=== PATIENT | female | born 1960 | race Caucasian/White ===

== ENCOUNTER 2019-04-12 10:38 | Observation (INO) | payer OTHER, BC, SELFPAY ==
[2019-04-12] VITALS (12 sets, daily range): BP systolic 123–159; BP diastolic 62–88; PULSE 66–105; RESP 16–18; TEMP 36.3–36.5; O2SAT 90–98; BMI 44.1
--- NOTE | ~2019-04-12 | XR_ITS ---
XR chest 2V DATE: 04/12/2019 11:17 INDICATION: Midsternal to left shoulder blade pain, burning TECHNIQUE: PA and lateral views COMPARISON: None FINDINGS: Normal heart size. No hilar or mediastinal enlargement. Mild aortic tortuosity. No pulmonary infiltrate or consolidation, pleural effusion or pulmonary vascular congestion or pneumo thorax is detected. IMPRESSION: No active cardiopulmonary disease Reviewed, dictated and finalized at location A. S MGR
--- NOTE | ~2019-04-12 | CT_ITS ---
EXAMINATION: CTA chest PE protocol DATE: 04/12/2019 11:56 INDICATION: Chest pain, burning sensation, midsternal to left shoulder blade area TECHNIQUE: Computed tomography angiography (CTA) of the chest was performed with 100 mL Omnipaque-350 intravenous contrast timed to evaluate the pulmonary arteries. Coronal maximum intensity projection 3D-reconstructions were created by the technologist. Automated exposure control and iterative reconst ruction technique were employed. Exam dose: 957.49 mGy-cm total exam DLP. COMPARISON: 04/12/2021 view chest FINDINGS: There is diagnostic contrast enhancement of the pulmonary arteries. There are are small segmental pulmonary artery filling defects in the posterior segment of the left l ower lobe and lingula. Heart size is within normal range. No thoracic aortic aneurysm or dissection. No hilar or mediastinal mass lesion or lymphadenopathy. No pulmonary infiltrate or consolidation or pulmonary mass lesion is detected. Small sliding hiatal hernia. Diffuse idiopathic skeletal hyperostosis of the thoracic spine. No suspicious osteolytic or osteoblas tic lesions. IMPRESSION: Mild pulmonary embolism at the lingula and left lower lobe Reviewed, dictated and finalized at Location A. Reviewed, dictated and finalized at location A. 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
--- NOTE | ~2019-04-12 | US_ITS ---
US venous doppler [facility] DATE: 04/12/2019 14:06 INDICATION: Pulmonary embolism TECHNIQUE: Real-time and color flow imaging and Doppler analysis of the veins of the lower extremitie s COMPARISON: 04/12/2019 CT pulmonary scan FINDINGS: The greater saphenous veins are patent. There is spontaneous and phasic flow and normal aug mentation and color flow signal and normal compression of the deep veins of the lower extremities. No deep venous thrombosis is detected. There is a left popliteal cyst measuring 4.0 x 2.2 x 3.5 cm. IMPRESSION: No evidence of deep venous thrombosis of the lower extremities Left popliteal cyst Reviewed, dictated and finalized at [facility]. Reviewed, dictated and finalized at location A. NSED OPTICIAN
--- NOTE | 2019-04-12 10:45 | ECG_ITS ---
Measurements Intervals Reedy Rate: 102 P: 47 NJ: 146 QRS: 34 QRSD: 93 T: 33 QT: 349 QTc: 455 Interpretive Statements SINUS TACHYCARDIA POSSIBLE LEFT ATRIAL ENLARGEMENT INFERIOR INFARCT, AGE INDETERMINATE BASELINE ARTIFACT- I, II, III, AVR, V3, V6 ABNORMAL ECG Electronically Signed On 04-17-2019 12:58:09 FLUSH TESTER by Sp Parikh D.O.
[2019-04-12] MEDS: ASPIRIN 81 MG CHEWABLE TABLET 324 MG PO (11:19)
[2019-04-12] MEDS: ONDANSETRON INJ 4 MG/2 ML VIAL IV PUSH (11:19)
[2019-04-12] MEDS: SODIUM CHLORIDE 0.9% IV 1,000 ML 999 ML IV CONT (11:20)
--- NOTE | 2019-04-12 11:20 | ED.CHESTPAIN ---
HPI - Chest Pain General Chief Complaint: Chest Pain Stated Complaint: Chest pain Time Seen by Provider: 04/12/19 10:45 Source: patient Mode of arrival: ambulatory Limitations: no limitations History of Present Illness HPI narrative: Patient is a 58-year-old female who presents with midsternal chest pain radiating to the left scapula that has been present now for the last 24 hours noting that yesterday she developed the pain which was persistent throughout the day took some Pepto-Bismol with no improvement patient notes that the pain seemed to slightly improve throughout the evening and then woke again with the discomfort today which has remained persistent and also notes she has been having increasing belching. Patient denies similar occurrence in the past presents per private vehicle in no distress denies any nausea vomiting diarrhea or dyspnea. Pain apparently is worse with standing Related Data Home Medications Medication Instructions Recorded Confirmed celecoxib mg 04/12/19 levothyroxine [Synthroid] 04/12/19 lisinopril 04/12/19 Allergies Allergy/AdvReac Type Severity Reaction Status Date / Time Penicillins Allergy Unknown Rash Verified 04/12/19 10:48 clindamycin AdvReac Abdominal Verified 04/12/19 10:48 Pain Review of Systems Review of Systems: Narrative: CONSTITUTIONAL: Denies fever, chills, or sweats. EYES: Denies redness, or discharge. ENT: Denies rhinorrhea, congestion, sore throat, or otalgia. CARDIOVASCULAR: Denies edema. RESPIRATORY: Denies cough or dyspnea. GASTROINTESTINAL: Denies abdominal pain, nausea, vomiting, or diarrhea. GENITOURINARY: Denies dysuria or hematuria. SKIN: Denies rash or itching. MUSCULOSKELETAL: Denies joint pain, or myalgia. NEUROLOGIC: Denies headache, numbness, dizziness, or weakness. [facility] Past Medical History Medical History (Updated 04/12/19 @ 13:46 by Eduar Leyva PA-C) Hypertension Hypothyroidism Surgical History Surgical History H/O thyroidectomy Social History Social History (Updated 04/12/19 @ 11:26 by Eduar Leyva PA-C) Smoking status: Never smoker Exam Narrative: Exam Narrative: GENERAL: Well-appearing, obese, and in no acute distress. HEAD: Normocephalic, atraumatic. EYES: PERRLA and EOMI. ENT: Nares clear, no rhinorrhea or epistaxis. Mucous membranes moist. Oropharynx without tonsillar hypertrophy exudate or other lesions. CHEST: Clear to auscultation. No respiratory distress. No wheezes rales or rhonchi HEART: Regular rate and rhythm. No murmur heard. Normal peripheral pulses. ABDOMEN: Soft, nontender, nondistended EXTREMITIES: Normal range of motion. No edema. SKIN: Warm, dry, no rash. NEURO: No focal deficits. Alert and oriented x3. Cranial nerves II through XII grossly intact PSYCH: Normal mood and affect. Course Course Emergency Course: Patient in the room in no distress aware of case findings treatment plan and diagnosis Consultations Consultation #1: Spoke with Krystal the hospitalist would like the patient admitted to the [facility] telemetry floor at this time with Lovenox for anticoagulation Vital Signs Vital signs: Vital Signs Temperature 97.5 F L 04/12/19 10:42 Pulse Rate 105 H 04/12/19 10:42 Respiratory Rate 16 04/12/19 10:42 Blood Pressure 159/88 H 04/12/19 10:42 Pulse Oximetry 95 04/12/19 10:42 Temperature 97.5 F L 04/12/19 10:42 Pulse Rate 96 04/12/19 10:50 Respiratory Rate 16 04/12/19 10:42 Blood Pressure 159/88 H 04/12/19 10:42 Pulse Oximetry 95 04/12/19 10:42 MDM - Chest Pain MDM Narrative Medical decision making narrative: Patient in the room in no distress aware of case findings treatment plan and diagnosis agreeing to stay in hospital was given anticoagulation in the emergency department will be admitted to the hospitalist service Imaging Data Radiologist's impression: ITS Impressions Chest X-Ray
[2019-04-12 11:24] LABS: Basophils Absolute Auto 0.1 K/mm3 (0.0-0.1); Basophils Percent Auto 0.7 % (0.2-1.2); Eosinophils Absolute Auto 0.3 K/mm3 (0-0.3); Eosinophils Percent Auto 4.6 % (0-4.4); Hematocrit 48.4 % (37.0-47.0); Hemoglobin 15.8 g/dL (12.0-15.0); Immature Granulocyte Absolute 0.02 K/mm3 (0.00-0.031); Immature Granulocyte Percent A 0.3 % (0-0.5); Lymphocytes Absolute Auto 2.17 K/mm3 (0.9-3.2); Lymphocytes Percent Auto 31.1 % (18.3-44.2); Mean Corpuscular HGB Conc 32.6 g/dl (32-36); Mean Corpuscular Hemoglobin 27.6 pg (26-34); Mean Corpuscular Volume 84.5 fl (80-100); Monocytes Absolute Auto 0.4 K/mm3 (0.1-0.6); Monocytes Percent Auto 6.2 % (2.6-8.5); Neutrophils Percent Auto 57.1 % (45.5-73.1); Platelet Count Result 323 k/mm3 (150-375); Red Blood Count 5.73 M/mm3 (4.2-5.4); Red Cell Distribution Width 12.7 % (11.5-14.5)
[2019-04-12 11:34] LABS: INR 0.9; Prothrombin Time 12.2 Seconds (11.1-14.7)
[2019-04-12 11:35] LABS: Partial Thromboplastin Time 30.3 SECONDS (22.3-36.8)
[2019-04-12 11:37] LABS: D Dimer 0.72 ug/mL (<0.48)
[2019-04-12 11:38] LABS: Alanine Aminotransferase 31 U/L (4-35); Albumin Level 4.3 g/dL (3.5-5.1); Alkaline Phosphatase 113 U/L (38-126); Aspartate Amino Transferase 34 U/L (14-36); Bilirubin,Total 0.4 mg/dL (0.2-1.3); Blood Urea Nitrogen 14 mg/dL (7-17); Calcium 9.1 mg/dL (8.4-10.2); Carbon Dioxide 27 mmol/L (22-30); Chloride 100 mmol/L (98-107); Estimated CRCL calculation 115 ml/min; Estimated Glomerular Filt Rate > 60; Glucose 150 mg/dL (65-105); Sodium 138 mmol/L (137-145)
[2019-04-12 11:53] LABS: NT Pro B Type Natriuretic Pept 103 PG/ML (5-100); Troponin I < 0.012 ng/mL (0.000-0.034)
--- NOTE | 2019-04-12 11:58 | PC.NURSE ---
pt return from ct. denies cp at this time
[2019-04-12] MEDS: MORPHINE SULFATE 2 MG/ML INJ IV PUSH (12:58)
[2019-04-12] MEDS: ENOXAPARIN 30 MG/0.3 ML SYRINGE SUB-Q (12:58)
[2019-04-12] MEDS: ENOXAPARIN 120 MG/0.8 ML SYRINGE SUB-Q (12:58)
--- NOTE | 2019-04-12 13:49 | PM.IMHP ---
H&P: HPI History of Present Illness Chief complaint: Pulmonary embolism Narrative: Val Smith is a pleasant 58 year old female with hypertension and hypothyroidism who presented to the emergency department earlier this morning for evaluation of chest pain. evening she slept poorly due to what she believed to be indigestion. Upon waking Sunday, she notes feeling a ?nagging an aching? midsternal discomfort radiating to the left scapula that has been pretty constant since that time. She took Pepto-Bismol tablets due to belching and suspected heartburn however that provided her with no benefit. She gives no aggravating factors but says that it is somewhat improved when walking around doing activities, she presumes because activities keep her mind off of the discomfort. She has some mild associated nausea but nothing significant. No fever, chills, sweats, pleuritic pain, palpitations, exertional chest pain, shortness of breath, vomiting, or lower extremity edema. Review of Systems Review of Systems: Narrative: Twelve systems were reviewed with pertinent positives and negatives as per HPI. No fever, chills, or sweats. Weight has remained stable, in fact she has had a slow weight gain over the years. Last mammogram was in December 06 and was unremarkable; she has never had an abnormal mammo. Colonoscopy in February 2012 showed diverticulosis and internal hemorrhoids. She has not noticed lymphadenopathy. No blood in the stool. No lower extremity edema, calf pain, or history of venous thromboembolism. She does have a left Johnson's cyst which is occasionally uncomfortable. Except as documented, all other systems were reviewed and are negative. [facility] Past Medical History Medical History (Updated 04/12/19 @ 22:26 by Katy Germain PA-C) Hypertension Hyperthyroidism Post-surgical hypothyroidism Surgical History Surgical History (Updated 04/12/19 @ 22:26 by Katy Germain PA-C) Status post appendectomy Status post thyroidectomy Status post tonsillectomy Family History Family History (Updated 04/12/19 @ 22:26 by Katy Germain PA-C) Mother History of blood clots Diabetes mellitus Hypertension Breast cancer Father Diabetes mellitus Social History Social History (Updated 04/12/19 @ 22:27 by Katy Germain PA-C) Social History: The patient lives in [place] with her . She designates her , Dwain, as her surrogate decision maker and she wishes to be a full code. 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 She smoked for a couple of years as a teenager. No alcohol or drug abuse. Smoking packs per day: 0.1 Smoking cigarettes per day: 2.0 Years smoked: 1 Smoking pack-years: 0.10 Smoking status: Former smoker Tobacco type: cigarettes Alcohol intake: never Substance use: never Substance use type: does not use Gender identity (if verbalized by the patient): Female Spiritual care concerns: No Agree to blood products: Yes Meds Home Medications and Allergies Home Medications Medication Instructions Recorded Confirmed Type celecoxib 200 mg PO DAILY 04/12/19 04/12/19 History levothyroxine [Synthroid] 175 mcg PO DAILY 04/12/19 04/12/19 History lisinopril 10 mg PO DAILY 04/12/19 04/12/19 History Allergies Allergy/AdvReac Type Severity Reaction Status Date / Time Penicillins Allergy Unknown Rash Verified 04/12/19 10:48 clindamycin AdvReac Abdominal Verified 04/12/19 10:48 Pain Vital Signs Vital Signs - 24 hr 04/12/19 10:42 04/12/19 10:50 04/12/19 12:46 Temperature 97.5 F L Pulse Rate 105 H 96 92 Respiratory Rate 16 18 Blood Pressure 159/88 H 153/88 H Pulse Oximetry 95 98 Exam Narrative: Exam Narrative: General: A well-developed, well-nourished female in the semi-Miller position in bed in no acute distress. HEENT: PERRL, EOMI. Sclerae anicteric. Oral mucosa moist. Neck: Supple. Respiratory
[2019-04-12 14:49] LABS: Troponin I < 0.012 ng/mL (0.000-0.034)
[2019-04-12 15:33] LABS: Alveolar/Arterial O2 Gradient 22.3 mmHg; Base Excess ABG -0.2 mEq/l (+/-2.0); Carboxyhemoglobin 0.5 % THb (0-2.0); Fractional Inspired Oxygen 21 %; HCO3 ABG 25.9 mEq/l (22.0-26.0); Methemoglobin ABG 0.4 %THb (0-1.5); Oxygen Content ABG 19.9 %vol (16.0-22.0); Oxygen Saturation ABG 93.4 % (95.0-100.0); Oxyhemoglobin 92.3 % THb (90.0-100.0); PCO2 ABG 47.5 mmHg (35.0-45.0); PO2 ABG 70.6 mmHg (80.0-100.0); PO2 FiO2 Ratio Arterial Blood 3.36 %; Reduced Hemoglobin 6.8 %THb (0-5.0); Total Hemoglobin 15.3 g/dL (12.0-18.0); pH ABG 7.354 (7.350-7.450)
[2019-04-12 15:34] LABS: Device ROOM AIR; Modified Allen's Test Pass; Site Drawn LEFT RADIAL
--- NOTE | 2019-04-12 15:48 | PC.NURSE ---
This patient, Val Smith, was admitted to [facility] Surg Room 316-02. Patient/family oriented to hospital policies and general routines including ID bracelet, bed and alarms, visiting hours, pain management, procedures, bathroom and other care routines, personal items, smoking policy, room service/diet, and visiting hours. Valuables list has been completed. Information on how to activate the Rapid Response Team has been discussed. Patient/Family are encouraged to report perceived risks to care and to ask questions if they do not understand what they are told or what they should do.
[2019-04-12 16:52] LABS: Troponin I < 0.012 ng/mL (0.000-0.034)
[2019-04-12 20:04] LABS: Troponin I < 0.012 ng/mL (0.000-0.034)
[2019-04-12] MEDS: FAMOTIDINE 20 MG/2 ML VIAL IV PUSH (21:44)
[2019-04-13] VITALS: PULSE 75
[2019-04-13 04:00] VITALS: PULSE 69
[2019-04-13] MEDS: LEVOTHYROXINE SODIUM 75 MCG TABLET PO (05:32)
[2019-04-13] MEDS: LEVOTHYROXINE SODIUM 100 MCG TABLET PO (05:32)
[2019-04-13 06:00] VITALS: BP 151/85; PULSE 66; RESP 18; TEMP 36.7; O2SAT 95
[2019-04-13 06:19] LABS: Basophils Percent Auto 0.5 % (0.2-1.2); Eosinophils Absolute Auto 0.3 K/mm3 (0-0.3); Hematocrit 43.6 % (37.0-47.0); Immature Granulocyte Absolute 0.01 K/mm3 (0.00-0.031); Immature Granulocyte Percent A 0.2 % (0-0.5); Lymphocytes Absolute Auto 2.01 K/mm3 (0.9-3.2); Lymphocytes Percent Auto 35.6 % (18.3-44.2); Mean Corpuscular HGB Conc 32.1 g/dl (32-36); Mean Corpuscular Hemoglobin 27.5 pg (26-34); Mean Corpuscular Volume 85.5 fl (80-100); Mean Platelet Volume 9.3 fl (7.4-10.4); Monocytes Absolute Auto 0.4 K/mm3 (0.1-0.6); Monocytes Percent Auto 7.8 % (2.6-8.5); Neutrophils Absolute Auto 2.8 K/mm3 (1.3-6.7); Neutrophils Percent Auto 49.9 % (45.5-73.1); Platelet Count Result 266 k/mm3 (150-375); White Blood Count 5.7 K/mm3 (4.5-10.0)
[2019-04-13 06:46] LABS: Blood Urea Nitrogen 12 mg/dL (7-17); Calcium 8.5 mg/dL (8.4-10.2); Carbon Dioxide 30 mmol/L (22-30); Chloride 97 mmol/L (98-107); Estimated CRCL calculation 107 ml/min; Estimated Glomerular Filt Rate > 60; Glucose 102 mg/dL (65-105); Potassium 3.7 mmol/L (3.4-5.0); Sodium 135 mmol/L (137-145)
[2019-04-13 08:00] VITALS: PULSE 73
[2019-04-13] MEDS: FAMOTIDINE 20 MG/2 ML VIAL IV PUSH (08:36)
[2019-04-13] MEDS: lisinopriL 10 MG TABLET PO (08:36)
[2019-04-13] MEDS: APIXABAN 5 MG TABLET 10 MG PO (10:02)
[2019-04-13 12:00] VITALS: PULSE 72
[2019-04-13 14:00] VITALS: BP 139/75; PULSE 70; RESP 20; TEMP 36.9; O2SAT 94
--- NOTE | 2019-04-13 14:02 | PM.DS ---
DS: Diagnosis Admitting Diagnosis Admitting Diagnosis: Other pulmonary embolism without acute cor pulmonale Discharge Diagnosis (1) Pulmonary embolism: Code(s): I26.99 - Other pulmonary embolism without acute cor pulmonale Status: Acute (2) Chest pain: Code(s): R07.9 - Chest pain, unspecified Status: Acute (3) Polycythemia: Code(s): D75.1 - Secondary polycythemia Status: Acute (4) Hypertension: Code(s): I10 - Essential (primary) hypertension Status: Acute (5) Hypothyroidism: Code(s): E03.9 - Hypothyroidism, unspecified Status: Acute DS: Summary Hospital Course Reason for hospitalization: 58yo femael here for CP and found to have a PE. Please see H&P for details. Hospital Course: To the emergency room complaints of chest pain. In the emergency room, she was hemodynamically stable. Hemoglobin was slightly elevated 15.8 but on repeat was normal. CBC otherwise was normal. PT and PTT were normal. D-dimer 0.7. ABG showed a pH is 7.35 with a pCO2 47 a PO2 of 71 on room air. Glucose elevated 150 but this was nonfasting. CMP otherwise normal. Troponins negative x4. BNP was 103. Chest x-ray was clear. CTA of the chest showed mild pulmonary embolism at the lingula and left lower lobe. No other acute findings. Lower extremity venous Doppler was negative for DVT. Left popliteal cyst was noted which patient is aware of. Echo is pending. Patient started on Lovenox. she was switched to Eliquis. Chest pain is mild currently. She feels well. She denies shortness of breath. Her insurance will pay for the Eliquis. Patient is discharged home on 04/13/2019. Status at Discharge Functional status at discharge: independent ambulation Overall status at discharge: patient is back to baseline Time Spent with Patient Time attestation: Total time spent providing and/or coordinating discharge services:32 minutes Time spent: Greater than 30 minutes Exam Narrative: Exam Narrative: General: NARD Respiratory: CTA bilat, nml RR CV: RRR GI: Abdomen soft, NT/ND, +BS Ext: No pedal edema. Psych normal mood and affect. DS: Data Data Completed and Pending Labs on day of discharge: Labs from last 24 hours 04/13/19 04/13/19 04/12/19 05:54 05:54 19:36 WBC 5.7 RBC 5.10 Hgb 14.0 Hct 43.6 MCV 85.5 MCH 27.5 MCHC 32.1 RDW 13.0 Plt Count 266 MPV 9.3 Immature Gran % (Auto) 0.2 Neut % (Auto) 49.9 Lymph % (Auto) 35.6 Andrews % (Auto) 7.8 Eos % (Auto) 6.0 H Baso % (Auto) 0.5 Lymph # (Auto) 2.01 Andrews # (Auto) 0.4 Eos # (Auto) 0.3 Baso # (Auto) 0.0 Abs Immat Gran (auto) 0.01 Absolute Neuts (auto) 2.8 Absolute Nucleated RBC 0.0 Nucleated RBC % 0.0 Puncture Site ABG pH ABG pCO2 ABG pO2 ABG PO2/FiO2 Ratio ABG HCO3 ABG O2 Saturation ABG O2 Content ABG Base Excess A-a Gradient Oxyhemoglobin Carboxyhemoglobin Methemoglobin Reduced Hemoglobin Total Hemoglobin O2 Delivery Device O2 Liters/Min FiO2 Sodium 135 L Potassium 3.7 Chloride 97 L Carbon Dioxide 30 BUN 12 Creatinine 0.80 Estim Creat Clear Calc 107 Estimated GFR > 60 Glucose 102 Calcium 8.5 Troponin I < 0.012 04/12/19 04/12/19 04/12/19 16:24 15:24 14:19 WBC RBC Hgb Hct MCV MCH MCHC RDW Plt Count MPV Immature Gran % (Auto) Neut % (Auto) Lymph % (Auto) Andrews % (Auto) Eos % (Auto) Baso % (Auto) Lymph # (Auto) Andrews # (Auto) Eos # (Auto) Baso # (Auto) Abs Immat Gran (auto) Absolute Neuts (auto) Absolute Nucleated RBC Nucleated RBC % Puncture Site Left radial ABG pH 7.354 ABG pCO2 47.5 H ABG pO2 70.6 L ABG PO2/FiO2 Ratio 3.36 ABG HCO3 25.9 ABG O2 Saturation 93.4 L ABG O2 Content 19.9 ABG Base Excess -0.2 A-a Gradient 22.3 Oxyhe
--- NOTE | 2019-04-23 07:31 | PC.NURSE ---
Apnea link results viewed by Dr. Prasad and faxed to Dr. Romero.
== END 2019-04-13 15:40 | disposition home or self-care (01) ==
LOC: ANHED 13:52 → ANH3MEDSUR 14:18
PROVIDERS: Emergency Medicine Emergency Medical Services; Physician Assistant; Admitting Provider Family Medicine; Emergency Provider Emergency Medicine; PCP Family Medicine Adolescent Medicine; Visit Provider Internal Medicine
DX: I26.99 Other pulmonary embolism without acute cor pulmonale; D75.1 Secondary polycythemia; I10 Essential (primary) hypertension; E89.0 Postprocedural hypothyroidism; Z79.899 Other long term (current) drug therapy
CPT/HCPCS: 36415; 36600; 71046; 71275; 80048; 80053; 82375; 82805; 83050; 83880; 84484; 85025; 85380; 85610; 85730; 93005; 93970; 94762; 96365; 96372; 96374; 96375; 99285; A9270; G0378; J0131; J1650; J2270; J2405; J7030; Q9967

== ENCOUNTER 2019-11-06 07:26 | Emergency (ER) | payer OTHER, BC, SELFPAY ==
[2019-11-06 07:25] VITALS: BP 191/86; PULSE 83; RESP 16; TEMP 37.1; O2SAT 98
--- NOTE | 2019-11-06 07:34 | ED.EPISTAXIS ---
HPI - Epistaxis General Chief complaint: Epistaxis Stated complaint: NOSE BLEED Time Seen by Provider: 11/06/19 07:34 Source: patient and family Mode of arrival: EMS History of Present Illness HPI Narrative: 59 years old white female presents with epistaxis, left nostril and started 2 hours prior to arrival to the emergency room. History of intermittent epistaxis for years, last one was 2 months ago. Patient started on Eliquis for pulmonary embolism March 2019. Related Data Home Medications Medication Instructions Recorded Confirmed levothyroxine [Synthroid] 175 mcg PO DAILY 04/12/19 04/12/19 lisinopril 10 mg PO DAILY 04/12/19 04/12/19 cetirizine [Zyrtec] 10 mg PO DAILY 11/06/19 Allergies Allergy/AdvReac Type Severity Reaction Status Date / Time Penicillins Allergy Unknown Rash Verified 11/06/19 07:30 clindamycin AdvReac Abdominal Verified 11/06/19 07:30 Pain Review of Systems Review of Systems: Narrative: CONSTITUTIONAL: Denies fever, chills, or sweats. EYES: Denies visual changes, redness, or discharge. ENT: Denies rhinorrhea, congestion, sore throat, or otalgia. CARDIOVASCULAR: Denies chest pain, palpitations, or edema. RESPIRATORY: Denies cough or dyspnea. GASTROINTESTINAL: Denies abdominal pain, nausea, vomiting, or diarrhea. GENITOURINARY: Denies dysuria or hematuria. SKIN: Denies rash or itching. MUSCULOSKELETAL: Denies back pain, joint pain, or myalgia. NEUROLOGIC: Denies headache, numbness, or weakness. PSYCHIATRIC: Denies anxiety or depression. [facility] Past Medical History Medical History Hypertension Hyperthyroidism Post-surgical hypothyroidism Surgical History Surgical History Status post appendectomy Status post thyroidectomy Status post tonsillectomy Family History Family History Mother History of blood clots Diabetes mellitus Hypertension Breast cancer Father Diabetes mellitus Social History Social History Social History: The patient lives in [place] with her . She designates her , Dwain, as her surrogate decision maker and she wishes to be a full code. 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 She smoked for a couple of years as a teenager. No alcohol or drug abuse. Smoking packs per day: 0.1 Smoking cigarettes per day: 2.0 Years smoked: 1 Smoking pack-years: 0.10 Smoking status: Former smoker Tobacco type: cigarettes Alcohol intake: never Substance use: never Substance use type: does not use Gender identity (if verbalized by the patient): Female Spiritual care concerns: No Agree to blood products: Yes Exam Narrative: Exam Narrative: General appearance: Well-developed, well-nourished Skin: Normal color Head: Normocephalic, nontraumatic Eyes: Clear conjunctiva ENT: Active bleeding left nostril unable to see the bleeder Neck: Supple, nontender Chest and respiratory: Airway patent, no respiratory distress, no accessory muscle use Heart: Regular rate/rhythm Abdomen: Soft, nontender, no organomegaly, quiet bowel sounds Vascular: Normal peripheral pulses, normal capillary refill. Musculoskeletal: Normal range of motion, nontender back Neurologic: Alert and oriented ?3, C[employer]PER PRESERVES is normal as tested, no gross motor deficit Course Course Emergency Course: Improving Vital Signs Vital signs: Vital Signs Temperature 37.1 C 11/06/19 07:25 Pulse Rate 83 11/06/19 07:25 Respiratory Rate 16 11/06/19 07:25 Blood Pressure 191/86 H 11/06/19
--- NOTE | 2019-11-06 07:52 | PC.NURSE ---
Rhino Rocket placed (Lg.) per PAULETTE Marte at this time, with RN at bedside. PT tolerate well.
[2019-11-06 07:53] VITALS: PULSE 50; RESP 18; O2SAT 99
--- NOTE | 2019-11-06 08:00 | PC.NURSE ---
PAULETTE telles at bedside due to pt BP, ERP informs pt that she has most likely had a vasovagal response. pt placed in trendelenburg. bp now noted to be 97/74, hr 54.
[2019-11-06 08:02] VITALS: BP 133/85; PULSE 63; RESP 18; O2SAT 98
[2019-11-06 08:13] VITALS: BP 133/85; PULSE 74; RESP 18; O2SAT 98
--- NOTE | 2019-11-06 08:13 | PC.NURSE ---
pt responding well to prior interventions. states she is not feeling so fuzzy.
[2019-11-06 08:50] VITALS: BP 143/84; PULSE 73; RESP 18; O2SAT 97
--- NOTE | 2019-11-06 09:12 | PC.NURSE ---
verbal order per erp elfego for 60mg Tordal IM stat.
[2019-11-06] MEDS: KETOROLAC (*BKC) 60 MG/2 ML VIAL IM (09:15)
[2019-11-06 09:22] VITALS: BP 148/88; PULSE 84; RESP 16; O2SAT 97
== END 2019-11-06 09:27 | disposition home or self-care (01) ==
PROVIDERS: Emergency Provider Emergency Medicine; PCP Family Medicine Adolescent Medicine
DX: R04.0 Epistaxis (principal); I10 Essential (primary) hypertension; E89.0 Postprocedural hypothyroidism; Z86.711 Personal history of pulmonary embolism; Z79.01 Long term (current) use of anticoagulants; Z87.891 Personal history of nicotine dependence
CPT/HCPCS: 30901; 96372; 99283; J1885

== ENCOUNTER 2021-03-19 10:39 | Emergency (ER) | payer OTHER, BC, SELFPAY ==
[2021-03-19 11:35] VITALS: BP 175/99; PULSE 91; RESP 16; TEMP 36.4; O2SAT 97
--- NOTE | 2021-03-19 12:21 | ED.GENADULT ---
HPI - General Adult General Chief complaint: Skin/Abscess/Foreign Body Stated complaint: lt leg red and feels hot to the touch Source: patient Mode of arrival: ambulatory Limitations: no limitations History of Present Illness HPI narrative: Patient presents for evaluation of redness to the left lower leg. Symptom onset this morning. She states she has a history of eczema and today had symptoms in her left lower leg. She states she has a history of cellulitis and current symptoms are consistent with those previously experienced with cellulitis. No fever, chills, nausea, vomiting. She is not diabetic. She does not smoke. She denies any pain in the posterior calf. No history of VTE. Denies significant pain. No significant swelling. Related Data Home Medications Medication Instructions Recorded Confirmed levothyroxine [Synthroid] 175 mcg PO DAILY 04/12/19 03/19/21 lisinopril 10 mg PO DAILY 04/12/19 03/19/21 Allergies Allergy/AdvReac Type Severity Reaction Status Date / Time Penicillins Allergy Unknown Rash Verified 11/06/19 07:30 clindamycin AdvReac Unknown Abdominal Verified 03/19/21 12:15 Pain Review of Systems Review of Systems: CONSTITUTIONAL: Denies fever, chills, or sweats. EYES: Denies visual changes, redness, or discharge. ENT: Denies rhinorrhea, congestion, sore throat, or otalgia. CARDIOVASCULAR: Denies chest pain, palpitations, or edema. RESPIRATORY: Denies cough or dyspnea. GASTROINTESTINAL: Denies abdominal pain, nausea, vomiting, or diarrhea. GENITOURINARY: Denies dysuria or hematuria. SKIN: Reports redness to the left lower leg MUSCULOSKELETAL: Denies back pain, joint pain, or myalgia. NEUROLOGIC: Denies headache, numbness, dizziness, or weakness. PSYCHIATRIC: Denies anxiety or depression. [facility] Past Medical History Medical History Hypertension Hyperthyroidism Post-surgical hypothyroidism Surgical History Surgical History Status post appendectomy Status post thyroidectomy Status post tonsillectomy Family History Family History Mother History of blood clots Diabetes mellitus Hypertension Breast cancer Father Diabetes mellitus Social History Social History Social History: The patient lives in [place] with her . She designates her , Dwain, as her surrogate decision maker and she wishes to be a full code. 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 She smoked for a couple of years as a teenager. No alcohol or drug abuse. Smoking packs per day: 0.1 Smoking cigarettes per day: 2.0 Years smoked: 1 Smoking pack-years: 0.10 Smoking status: Former smoker Tobacco type: cigarettes Alcohol intake: never Substance use: never Substance use type: does not use Gender identity (if verbalized by the patient): Female Spiritual care concerns: No Agree to blood products: Yes Exam Narrative: GENERAL: Well-appearing, well-nourished, and in no acute distress. HEAD: Normocephalic, atraumatic. EYES: PERRLA and EOMI. ENT: Nares clear, no rhinorrhea or epistaxis. Mucous membranes moist. Oropharynx without tonsillar hypertrophy exudate or other lesions. Bilateral TMs pearly thapa nonbulging NECK: Supple. No adenopathy or masses. No carotid bruits or JVD CHEST: Clear to auscultation. No respiratory distress. No wheezes rales or rhonchi HEART: Regular rate and rhythm. No murmur heard. Normal peripheral pulses. ABDOMEN: Soft, nontender, nondistended, normal active bowel sounds. EXTREMITIES: Normal range of motion. No edema. SKIN: 8 x 21 cm area of erythema to the left anterolateral lower leg NEURO: No focal deficits. Alert and oriented x3. PSYCH: Normal mood and affect. Course Course Emergency Course: This is
== END 2021-03-19 12:30 | disposition home or self-care (01) ==
PROVIDERS: Emergency Provider Nurse Practitioner; PCP Family Medicine Adolescent Medicine
DX: L03.116 Cellulitis of left lower limb (principal); Z87.891 Personal history of nicotine dependence; I10 Essential (primary) hypertension
CPT/HCPCS: 99213; G0463

== ENCOUNTER 2021-10-14 01:39 | Day surgery (SDC) | payer OTHER, BC, SELFPAY ==
--- NOTE | 2021-10-13 13:14 | PM.HPGS ---
History of Present Illness History of Present Illness Consent: Risks, benefits, and alternatives have been discussed and questions answered. Patient agrees to proceed with procedure. Chief complaint: neoplasm screening Narrative: Val Smith is a 61 year old female Was referred for colon cancer screening. Her last colonoscopy was 10 years ago. Review of Systems Review of Systems: All systems reviewed & are unremarkable except as noted in HPI and below PMFSH Past Medical History Medical History Hypertension Hyperthyroidism Morbid (severe) obesity due to excess calories Obstructive sleep apnea (adult) (pediatric) Mild (AHI 9.9) 2019 Polycythemia Post-surgical hypothyroidism Pulmonary embolism (03/2019) Surgical History Surgical History History of appendectomy (1996) History of thyroidectomy (~1977) History of tonsillectomy and adenoidectomy (1971) Family History Family History Mother History of blood clots Diabetes mellitus Hypertension Breast cancer Acute myocardial infarction Cerebrovascular accident Heart disease Father Diabetes mellitus Hypertension Sibling Breast cancer Grandparent Cerebrovascular accident Grandparent Cerebrovascular accident Social History Social History Social History: The patient lives in [place] with her . She designates her , Dwain, as her surrogate decision maker and she wishes to be a full code. 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 She smoked for a couple of years as a teenager. No alcohol or drug abuse. Smoking packs per day: 1 Smoking cigarettes per day: 20.0 Years smoked: 2 Smoking pack-years: 2.00 Smoking status: Former smoker Tobacco type: cigarettes Alcohol intake: current Drinks per week: 1 Alcohol use details: Occasional Substance use: never Substance use type: does not use Living arrangements: with family Gender identity (if verbalized by the patient): Female Sexual Orientation (if Verbalized by the Patient): Straight or Heterosexual Spiritual care concerns: No Agree to blood products: Yes Meds Home Medications and Allergies Home Medications Medication Instructions Recorded Confirmed Type lisinopril 10 mg tablet 10 mg PO DAILY #90 tabs 08/18/21 10/14/21 Rx cetirizine 10 mg tablet (Zyrtec) 10 mg PO DAILY PRN Allergic 08/25/21 10/14/21 History Symptoms famotidine 20 mg tablet (Pepcid) 20 mg PO DAILY PRN Gastric Reflux 08/25/21 10/14/21 History fluticasone propionate 50 1 spray intranasal DAILY PRN 08/25/21 10/14/21 History mcg/actuation nasal allergy symptoms spray,suspension (Flonase Allergy Relief) olopatadine 0.7 % eye drops 1 drp EACH EYE DAILY PRN Eye 08/25/21 10/14/21 History (Pataday Once Daily Relief) Irritation pseudoephedrine-guaifenesin ER 120 1 tablet PO Q12H PRN Cold Symptoms 08/25/21 10/14/21 History mg-1,200 mg tab,extend release 12hr (Mucinex D Maximum Strength) triamcinolone acetonide 0.1 % 1 applic topical BID PRN Skin 08/25/21 10/14/21 History topical cream Irritation Synthroid 175 mcg tablet 175 mcg PO DAILY #90 tabs 09/08/21 10/14/21 Rx (levothyroxine) Allergies Allergy/AdvReac Type Severity Reaction Status Date / Time Penicillins Allergy Unknown Rash Verified 10/14/21 07:35 clindamycin AdvReac Unknown Abdominal Verified 10/14/21 07:35 Pain Exam Resp: Auscultation: clear to auscultation bilaterally Cardio: Rate: regular rate Rhythm: regular rhythm GI: GI Palp: Yes Soft to palpation and No Tenderness to palpation present (GI) Assessment and Plan Assessment and plan (1) Colon cancer screening: Code(s): Z12.11 - Encounter for screening for malignant neoplasm of colon Status: Acute
[2021-10-14 07:36] VITALS: BP 178/92; PULSE 95; RESP 16; TEMP 36.5; O2SAT 96; BMI 42.1
--- NOTE | 2021-10-14 07:39 | WPDANESEPPF ---
Anes - Initial Pre Proc Eval Procedure: Operation Date: 10/14/21 09:00 Proposed Procedures p Screening Colonoscopy - Lucio Queen MD Date/Time: 10/14/21 07:39 Surgeon: Lucio Queen MD Pre Op Diagnosis: neoplasm screening Patient Data Age: 61 Gender: F Height: 1.83 m Weight: 140.9 kg Last Vital Signs Temp 36.5 C 10/14/21 07:36 Pulse 95 10/14/21 07:36 Resp 16 10/14/21 07:36 BP 178/92 H 10/14/21 07:36 Pulse Ox 96 10/14/21 07:36 O2 Del Method Room Air 10/14/21 07:36 Allergies Allergy/AdvReac Type Severity Reaction Status Date / Time Penicillins Allergy Unknown Rash Verified 10/14/21 07:35 clindamycin AdvReac Unknown Abdominal Verified 10/14/21 07:35 Pain Home Medications Medication Instructions Recorded Confirmed Type lisinopril 10 mg tablet 10 mg PO DAILY #90 tabs 08/18/21 10/14/21 Rx cetirizine 10 mg tablet (Zyrtec) 10 mg PO DAILY PRN Allergic 08/25/21 10/14/21 History Symptoms famotidine 20 mg tablet (Pepcid) 20 mg PO DAILY PRN Gastric Reflux 08/25/21 10/14/21 History fluticasone propionate 50 1 spray intranasal DAILY PRN 08/25/21 10/14/21 History mcg/actuation nasal allergy symptoms spray,suspension (Flonase Allergy Relief) olopatadine 0.7 % eye drops 1 drp EACH EYE DAILY PRN Eye 08/25/21 10/14/21 History (Pataday Once Daily Relief) Irritation pseudoephedrine-guaifenesin ER 120 1 tablet PO Q12H PRN Cold Symptoms 08/25/21 10/14/21 History mg-1,200 mg tab,extend release 12hr (Mucinex D Maximum Strength) triamcinolone acetonide 0.1 % 1 applic topical BID PRN Skin 08/25/21 10/14/21 History topical cream Irritation Synthroid 175 mcg tablet 175 mcg PO DAILY #90 tabs 09/08/21 10/14/21 Rx (levothyroxine) Patient hx anesthesia problems: none Family hx anesthesia problems: none Results Review: All pre-operative results and documents have been reviewed as part of the pre-operative evaluation. [facility] Past Medical History Medical History (Updated 10/14/21 @ 07:39 by Mayank Hamilton MD) Hypertension Hyperthyroidism Morbid (severe) obesity due to excess calories Obstructive sleep apnea (adult) (pediatric) Mild (AHI 9.9) 2019 Polycythemia Post-surgical hypothyroidism Pulmonary embolism (03/2019) Surgical History Surgical History (Updated 08/24/21 @ 07:46 by Guillermo Romero MD) History of appendectomy (1996) History of thyroidectomy (~1977) History of tonsillectomy and adenoidectomy (1971) Family History Family History (Updated 08/25/21 @ 08:03 by Zunilda Akhtar MA) Mother History of blood clots Diabetes mellitus Hypertension Breast cancer Acute myocardial infarction Cerebrovascular accident Heart disease Father Diabetes mellitus Hypertension Sibling Breast cancer Grandparent Cerebrovascular accident Grandparent Cerebrovascular accident Social History Social History (Updated 08/25/21 @ 08:04 by Zunilda Akhtar MA) Social History: The patient lives in [place] with her . She designates her , Dwain, as her surrogate decision maker and she wishes to be a full code. 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 She smoked for a couple of years as a teenager. No alcohol or drug abuse. Smoking packs per day: 1 Smoking cigarettes per day: 20.0 Years smoked: 2 Smoking pack-years: 2.00 Smoking status: Former smoker Tobacco type: cigarettes Alcohol intake: current Drinks per week: 1 Alcohol use details: Occasional Substance use: never Substance use type: does not use Living arrangements: with family Gender identity (if verbalized by the patient): Female Sexual Orientation (if Verbalized by the Patient): Straight or Heterosexual Spiritual care concerns: No Agree to blood products: Yes Anes - Eval Final PreProcedure Day of Procedure 10/14/21 07:39 Patient weight: morbidly obese Heart: regular rate and rhythm Lungs: clear to auscultation
[2021-10-14] MEDS: LACTATED RINGERS 1,000 ML 150 ML IV CONT (07:45)
[2021-10-14] MEDS: SIMETHICONE ORAL SUSPENSION 20 MG/0.3 ML 30 ML BOTTLE 0.6 ML IRRIGATION (08:55)
[2021-10-14 09:02] VITALS: BP 123/76; PULSE 71; RESP 19; O2SAT 95
[2021-10-14 09:12] VITALS: BP 146/89; PULSE 68; RESP 18; O2SAT 98
[2021-10-14 09:22] VITALS: BP 150/90; PULSE 61; RESP 14; O2SAT 98
== END 2021-10-14 09:30 | disposition home or self-care (01) ==
PROVIDERS: PCP Family Medicine Adolescent Medicine; Visit Provider Internal Medicine Gastroenterology
PROC: 0DJD8ZZ Inspection of Lower Intestinal Tract, Via Natural or Artificial Opening Endoscopic (ICD-10-PCS; CPT 45378; principal; 2021-10-14 09:00)
DX: Z12.11 Encounter for screening for malignant neoplasm of colon (principal); K63.5 Polyp of colon; E89.0 Postprocedural hypothyroidism; K57.30 Diverticulosis of large intestine without perforation or abscess without bleeding; I10 Essential (primary) hypertension; G47.33 Obstructive sleep apnea (adult) (pediatric); Z86.711 Personal history of pulmonary embolism; Z87.891 Personal history of nicotine dependence; E66.9 Obesity, unspecified; Z68.41 Body mass index [BMI] 40.0-44.9, adult
CPT/HCPCS: 45380; 88305; J2704; J7120

== ENCOUNTER 2022-07-01 17:36 | Observation (INO) | payer OTHER, BC, SELFPAY ==
[2022-07-01] VITALS (17 sets, daily range): BP systolic 152–182; BP diastolic 69–96; PULSE 75–91; RESP 13–19; TEMP 36.4–36.7; O2SAT 93–97; BMI 44.4
--- NOTE | ~2022-07-01 | US_ITS ---
EXAMINATION: US venous doppler [facility] DATE: 07/02/2022 09:02 INDICATION: Lower limb swelling TECHNIQUE: Moore scale images without and with compression and Doppler images of the bilateral lower e xtremity veins were obtained. COMPARISON: 04/12/2019 FINDINGS: The right common femoral vein, profunda femoral vein, femoral vein, popliteal vein, peroneal trunk, p osterior tibial veins, and greater saphenous vein are patent. The left common femoral vein, profunda femoral vein, femoral vein, popliteal vein, peroneal trunk, po sterior tibial veins, and greater saphenous vein are patent. There is a 5.1 cm left popliteal Johnson's cyst. IMPRESSION: 1. Patent bilateral lower extremity veins. No evidence of deep venous thrombosis. 2. Left Johnson's cyst. Reviewed, dictated and finalized at location A. IMPRESSION: 1. Patent bilateral lower extremity veins. No evidence of deep venous thrombosi s. 2. Left Johnson's cyst.
--- NOTE | ~2022-07-01 | CT_ITS ---
EXAMINATION: CTA chest PE protocol DATE: 07/01/2022 19:55 INDICATION: Chest pain TECHNIQUE: Computed tomography (CT) pulmonary angiogram of the chest was performed with 100 mL Omnipa que-350 intravenous contrast. Additional 3D reconstructions utilizing coronal maximum intensity proje ction (MIP) were performed. Automated exposure control and iterative reconstruction technique were em ployed. The dose-length product was 974.06 mGy-cm. COMPARISON: 04/12/2019 FINDINGS: Excellent contrast opacification of the pulmonary arteries. There is mild streak artifact from dense contrast in the superior vena cava and right atrium. Mild scattered respiratory motion artifact which does not significantly limit evaluation. Central filling defect within the posterior segmental pulmo nary artery of the right upper lobe consistent with pulmonary embolism. No other pulmonary emboli casi ntified. No pneumonia, pulmonary infarcts, pulmonary edema or other pulmonary infiltrates. No pleural effusion or pneumothorax. Heart size is normal. No leftward bowing of the ventricular septum to sugg est right heart strain. No pericardial effusion. Thoracic aorta is normal in caliber with no dissecti on. Calcified subcarinal and prevascular mediastinal lymph nodes consistent with old granulomatous di sease. No pathologically enlarged gastric lymphadenopathy. Visualized upper abdomen is unremarkable. Mild thoracic kyphosis with moderate thoracic spondylosis and chronic mild anterior wedging at T7 and T8. IMPRESSION: 1. Pulmonary embolism with low clot burden in the posterior segmental pulmonary artery of the right u pper lobe. Reviewed, dictated and finalized at location A. IMPRESSION: 1. Pulmonary embolism with low clot burden in the posterior segmental pulmonary artery of the right upper lobe.
--- NOTE | 2022-07-01 17:59 | ED.CHESTPAIN ---
HPI - Chest Pain General Chief Complaint: Chest Pain Stated Complaint: Chest pain Time Seen by Provider: 07/01/22 17:45 History of Present Illness HPI narrative: Patient is a 62-year-old female with a history of hypothyroidism, hypertension presenting with chest pain. Patient states that for the last day and a half she has had intermittent chest pain. States that it comes on randomly and is located underneath her left breast. States that it lasts for several seconds and then resolves. She denies an exertional component. Denies pleuritic component. States that when it happens she will have a weird sensation. States that she will feel a little bit nauseated and lightheaded. She denies any dyspnea. Currently, the patient denies complaints. She states that she had a pulmonary embolus several years ago for which she was on temporary anticoagulation. She denies any recent leg swelling, redness. States that she has had bilateral calf tightness for the last few weeks. No fevers or chills, cough, abdominal pain, nausea or vomiting, diarrhea, dysuria. Related Data Home Medications Medication Instructions Recorded Confirmed cetirizine 10 mg tablet (Zyrtec) 10 mg PO DAILY PRN Allergic 08/25/21 07/01/22 Symptoms fluticasone propionate 50 1 spray intranasal DAILY PRN 08/25/21 07/01/22 mcg/actuation nasal allergy symptoms spray,suspension (Flonase Allergy Relief) olopatadine 0.7 % eye drops 1 drp EACH EYE DAILY PRN Eye 08/25/21 07/01/22 (Pataday Once Daily Relief) Irritation Allergies Allergy/AdvReac Type Severity Reaction Status Date / Time Penicillins Allergy Unknown Rash Verified 07/01/22 17:59 clindamycin AdvReac Unknown Abdominal Verified 07/01/22 17:59 Pain Review of Systems Review of Systems: All systems reviewed & are unremarkable except as noted in HPI and below PMFSH Past Medical History Medical History Hypertension Hyperthyroidism Morbid (severe) obesity due to excess calories Obstructive sleep apnea (adult) (pediatric) Mild (AHI 9.9) 2019 Polycythemia Post-surgical hypothyroidism Pulmonary embolism (03/2019) Surgical History Surgical History History of appendectomy (1996) History of thyroidectomy (~1977) History of tonsillectomy and adenoidectomy (1971) Family History Family History Mother History of blood clots Diabetes mellitus Hypertension Breast cancer Acute myocardial infarction Cerebrovascular accident Heart disease Father Diabetes mellitus Hypertension Sibling Breast cancer Grandparent Cerebrovascular accident Grandparent Cerebrovascular accident Social History Social History Social History: The patient lives in [place] with her . She designates her , Dwain, as her surrogate decision maker and she wishes to be a full code. 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 She smoked for a couple of years as a teenager. No alcohol or drug abuse. Smoking packs per day: 1 Smoking cigarettes per day: 20.0 Years smoked: 2 Smoking pack-years: 2.00 Smoking status: Never smoker Tobacco type: cigarettes Alcohol intake: current Drinks per week: 1 Alcohol use details: Occasional Substance use: never Substance use type: does not use Lack of Transportation: No Lack of Food: Never True Current Housing: I Have Housing Concerned About Future Housing: No Difficulty Paying Gas/Electric Bills: No Difficulty Paying for Meds: No Currently Unemployed: No Education: Bachelor's Degree Difficulty w/ Childcare or Family Care: No Living arrangements: with family Occupation/Education: occupation Gender identity (if verbalized by the patient): Female Sexual Orientation (if Verbalized by the Patient):
--- NOTE | 2022-07-01 18:25 | ECG_ITS ---
Measurements Intervals [place] Rate: 75 P: -6 AL: 151 QRS: 28 QRSD: 99 T: 43 QT: 384 QTc: 430 Interpretive Statements SINUS RHYTHM CANNOT RULE OUT OLD INFERIOR MYOCARDIAL INFARCTION COMPARED TO ECG 04/15/2019 07:08:02 NO SIGNIFICANT CHANGES Electronically Signed On 07-01-2022 22:20:11 CDT by Kamini Sherwood M.D.
[2022-07-01 18:42] LABS: Basophils Absolute Auto 0.1 K/mm3 (0.0-0.1); Basophils Percent Auto 0.7 % (0.2-1.2); Eosinophils Absolute Auto 0.6 K/mm3 (0-0.3); Hematocrit 46.1 % (37.0-47.0); Hemoglobin 15.3 g/dL (12.0-15.0); Immature Granulocyte Absolute 0.02 K/mm3 (0.00-0.031); Immature Granulocyte Percent A 0.3 % (0-0.5); Lymphocytes Absolute Auto 2.21 K/mm3 (0.9-3.2); Lymphocytes Percent Auto 31.5 % (18.3-44.2); Mean Corpuscular HGB Conc 33.2 g/dl (32-36); Mean Corpuscular Hemoglobin 28.9 pg (26-34); Mean Corpuscular Volume 87.1 fl (80-100); Mean Platelet Volume 9.7 fl (7.4-10.4); Monocytes Absolute Auto 0.5 K/mm3 (0.1-0.6); Neutrophils Absolute Auto 3.6 K/mm3 (1.3-6.7); Neutrophils Percent Auto 51.5 % (45.5-73.1); Platelet Count Result 325 k/mm3 (150-375); Red Blood Count 5.29 M/mm3 (4.2-5.4); Red Cell Distribution Width 13.2 % (11.5-14.5)
[2022-07-01 19:01] LABS: Alanine Aminotransferase 27 U/L (6-35); Albumin Level 4.1 g/dL (3.5-5.1); Alkaline Phosphatase 102 U/L (38-126); Anion Gap 9 mmol/L (8-16); Aspartate Amino Transferase 30 U/L (14-36); Bilirubin,Total 0.5 mg/dL (0.2-1.3); Blood Urea Nitrogen 17 mg/dL (7-17); Calcium 8.6 mg/dL (8.4-10.2); Carbon Dioxide 28 mmol/L (22-30); Chloride 103 mmol/L (98-107); Estimated Glomerular Filt Rate > 60; Glucose 115 mg/dL (65-110); Lipase 80 U/L (23-300); Potassium 3.8 mmol/L (3.4-5.0); Sodium 140 mmol/L (137-145)
[2022-07-01 19:21] LABS: Troponin I < 0.012 ng/mL (0.000-0.034)
--- NOTE | 2022-07-01 19:24 | PC.NURSE ---
Report received from RICHARD Godfrey. Assumed care of patient at this time.
[2022-07-01] MEDS: ENOXAPARIN 80 MG/0.8 ML SYRINGE 145 MG SUB-Q (21:12)
--- NOTE | 2022-07-01 21:31 | PM.IMHP ---
H&P: HPI History of Present Illness Date/Time: 07/01/22 21:31 Chief Complaint: Chest discomfort Narrative: This is a 62-year-old female with past medical history significant for morbid obesity, hypertension, hypothyroidism, obstructive sleep apnea, pulmonary embolism. Patient presents to the emergency room due to feeling unwell , chest discomfort, a states that reminding her of when she had her 1st episode of pulmonary embolism. Patient denies any hemoptysis, shortness of breath, chest pain, palpitations, diaphoresis, lightheadedness, near-syncope, syncope, no leg swelling, no calves pain, no fevers, no rigors, no chills, no cough, no sputum production, no recent surgeries, no recent long car or airplane travel. Preliminary workup was significant for CT angiogram of the chest PE protocol was reported as: FINDINGS: Excellent contrast opacification of the pulmonary arteries. There is mild streak artifact from dense contrast in the superior vena cava and right atrium. Mild scattered respiratory motion artifact which does not significantly limit evaluation. Central filling defect within the posterior segmental pulmonary artery of the right upper lobe consistent with pulmonary embolism. No other pulmonary emboli identified. No pneumonia, pulmonary infarcts, pulmonary edema or other pulmonary infiltrates. No pleural effusion or pneumothorax. Heart size is normal. No leftward bowing of the ventricular septum to suggest right heart strain. No pericardial effusion. Thoracic aorta is normal in caliber with no dissection. Calcified subcarinal and prevascular mediastinal lymph nodes consistent with old granulomatous disease. No pathologically enlarged gastric lymphadenopathy. Visualized upper abdomen is unremarkable. Mild thoracic kyphosis with moderate thoracic spondylosis and chronic mild anterior wedging at T7 and T8. IMPRESSION: 1. Pulmonary embolism with low clot burden in the posterior segmental pulmonary artery of the right upper lobe. Review of Systems Review of Systems: Feeling well, chest discomfort. Constitutional: Constitutional: Denies chills, Denies fatigue, Denies fever(s), Denies lethargy, Denies malaise, Denies night sweats, Denies poor appetite and Denies weakness Eyes: Eyes: Denies change in vision ENT: Denies dysphagia and Denies odynophagia Cardiovascular: Cardiovascular: Denies chest pain, Denies syncope, Denies leg edema, Denies lightheadedness, Denies palpitations and Denies dyspnea Respiratory: Respiratory: Denies cough, Denies hemoptysis, Denies dyspnea and Denies wheezing Gastrointestinal: Gastrointestinal: Denies abdominal pain, Denies dyspepsia, Denies heartburn, Denies diarrhea, Denies nausea and Denies vomiting Genitourinary: Genitourinary: Denies dysuria Musculoskeletal: Musculoskeletal: Denies back pain and Denies myalgias Integumentary/Breasts: Skin/Breast: Denies rash Neurologic: Denies focal weakness and Denies Sensory deficit (Neuro) Psychiatric: Psychiatric: Reports no additional psychiatric complaints and Reports as per HPI Endocrine: Endocrine: Denies cold intolerance, Denies fatigue, Denies flushing, Denies heat intolerance, Denies polyphagia, Denies polydipsia and Denies palpitations Hematologic/Lymphatic: Hematologic/Lymphatic: Reports no additional hematologic/lymphatic complaints and Reports as per HPI Allergic/Immunologic: Allergic/Immunologic: Reports no additional allergic/immunologic complaints and Reports as per HPI PMFSH Past Medical History Medical History Hypertension Hyperthyroidism Morbid (severe) obesity due to excess calories Obstructive sleep apnea (adult) (pediatric) Mild (AHI 9.9) 2019 Polycythemia Post-surgical hypothyroidism Pulmonary embolism (03/2019) Surgical History Surgical History History of appendectomy (1996) History of thyroidectomy (~1977) History
--- NOTE | 2022-07-01 22:00 | ADMGEN ---
This patient, Val Smith, was admitted to 2 Medical Room 259-01. Patient/family oriented to hospital policies and general routines including ID bracelet, bed and alarms, visiting hours, pain management, procedures, bathroom and other care routines, personal items, smoking policy, room service/diet, and visiting hours. Information on how to activate the Rapid Response Team has been discussed. Patient/Family are encouraged to report perceived risks to care and to ask questions if they do not understand what they are told or what they should do.
[2022-07-01 22:24] LABS: Troponin I < 0.012 ng/mL (0.000-0.034)
[2022-07-02 05:51] VITALS: BP 134/85; PULSE 71; RESP 19; TEMP 36.1; O2SAT 93
[2022-07-02] MEDS: LEVOTHYROXINE SODIUM 100 MCG TABLET PO (05:55)
[2022-07-02] MEDS: LEVOTHYROXINE SODIUM 75 MCG TABLET PO (05:55)
[2022-07-02 08:14] LABS: Hematocrit 45.7 % (37.0-47.0); Hemoglobin 14.6 g/dL (12.0-15.0); Mean Corpuscular HGB Conc 31.9 g/dl (32-36); Mean Corpuscular Hemoglobin 27.9 pg (26-34); Mean Corpuscular Volume 87.4 fl (80-100); Mean Platelet Volume 10.1 fl (7.4-10.4); Platelet Count Result 290 k/mm3 (150-375); Red Blood Count 5.23 M/mm3 (4.2-5.4); Red Cell Distribution Width 13.2 % (11.5-14.5); White Blood Count 6.7 K/mm3 (4.5-10.0)
[2022-07-02 08:20] LABS: Anion Gap 6 mmol/L (8-16); Blood Urea Nitrogen 17 mg/dL (7-17); Calcium 8.2 mg/dL (8.4-10.2); Carbon Dioxide 29 mmol/L (22-30); Chloride 103 mmol/L (98-107); Estimated CRCL calculation 102 ml/min; Estimated Glomerular Filt Rate > 60; Glucose 99 mg/dL (65-110); Potassium 3.9 mmol/L (3.4-5.0); Sodium 138 mmol/L (137-145)
[2022-07-02 08:29] LABS: NT Pro B Type Natriuretic Pept 157 pg/mL (19.9-100)
[2022-07-02] MEDS: lisinopriL 10 MG TABLET PO (09:12)
[2022-07-02] MEDS: ENOXAPARIN 80 MG/0.8 ML SYRINGE 145 MG SUB-Q ×2 (09:13→20:05)
--- NOTE | 2022-07-02 13:25 | PM.IMPN ---
Progress Note: A&P Assessment and Plan (1) Pulmonary embolism: Code(s): I26.99 - Other pulmonary embolism without acute cor pulmonale Status: Acute Assessment and Plan: Patient with history of pulmonary embolism and 2020. At that time patient states that she [facility] is been the car traveling for approximately 17 hours. Two but Eliquis to be taken for 6-7 months. She completed the therapy. CTA chest shows pulmonary embolism with low clot burden in the posterior segmental pulmonary artery of the right upper lobe. Anti thrombin iii, protein S and C in process Heme-Onc consult Prior history on Eliquis terminated is 7 months after episode Currently on therapeutic Lovenox Echocardiogram ordered. Venous Doppler bilateral lower extremities ordered. Patient denies tobacco use, hormone use, and recent travel. 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 (2) Obstructive sleep apnea (adult) (pediatric): Code(s): G47.33 - Obstructive sleep apnea (adult) (pediatric) Status: Acute Assessment and Plan: Continue CPAP (3) Hypertension: Code(s): I10 - Essential (primary) hypertension Status: Acute Assessment and Plan: Continue home meds Continue to monitor Subjective Date/time seen: 07/02/22 13:25 Interval history: Patient is doing well with at bedside. Patient's symptoms have resolved. She denies chest pain, shortness a breath, heart palpitations, nausea, vomiting. Patient is not requiring supplemental oxygen. Review of Systems Review of Systems: All systems reviewed & are unremarkable except as noted in HPI and below Exam Narrative: GENERAL: Comfortable, no acute distress, morbid obesity HENMT: moist mucous membranes EYES: EOM intact b/l NECK: no lymphadenopathy RESPIRATORY: clear to auscultation CARDIO: RRR GI: soft, nontender, bowel sounds present SKIN: no rashes EXTREMITIES: no edema, redness or tenderness Objective Data Vital Signs Vital Signs: Vital Signs - 24 hr 07/01/22 17:40 07/01/22 20:26 07/01/22 20:27 Temperature 98.1 F 97.6 F Pulse Rate 83 79 Respiratory Rate 18 14 Blood Pressure 155/91 H 182/96 H Pulse Oximetry 95 96 96 Oxygen Delivery Room Air Room Air Room Air 07/01/22 19:00 07/01/22 19:30 07/01/22 19:45 Temperature Pulse Rate 75 75 84 Respiratory Rate 17 19 18 Blood Pressure Pulse Oximetry 94 93 95 Oxygen Delivery 07/01/22 20:00 07/01/22 20:15 07/01/22 20:29 Temperature Pulse Rate 83 91 75 Respiratory Rate 18 16 Blood Pressure 182/96 H Pulse Oximetry 94 94 95 Oxygen Delivery 07/01/22 20:30 07/01/22 20:45 07/01/22 21:01 Temperature Pulse Rate 75 79 Respiratory Rate 17 13 Blood Pressure Pulse Oximetry 96 95 96 Oxygen Delivery 07/01/22 21:02 07/01/22 21:15 07/01/22 21:40 Temperature Pulse Rate Respiratory Rate Blood Pressure 152/69 H Pulse Oximetry 97 94 96 Oxygen Delivery 07/01/22 22:19 07/01/22 22:12 07/02/22 05:51 Temperature 97.6 F 97 F L Pulse Rate 76 76 71 Respiratory Rate 19 19 19 Blood Pressure 153/96 H 134/85 Pulse Oximetry 96 96 93 Oxygen Delivery Room Air 07/02/22 09:20 Temperature Pulse Rate Respiratory Rate Blood Pressure Pulse Oximetry Oxygen Delivery Room Air Intake/Output Intake/Output: Intake & Output 06/29/22 06/30/22 07/01/22 07/02/22 23:59 23:59 23:59 23:59 Intake Total 1070 Balance 1070 Meds/Results Medications: Active Medications Generic Name Dose Route Start Last Admin Trade Name Freq PRN Reason Stop Dose Admin Enoxaparin Sodium 145 mg 07/02/22 09:00 07/02/22 09:13 Enoxaparin 80 Mg/0.8 Ml Syringe SUB-Q 145 mg Q12HR ISHA Administration Fluticasone Propionate 1 spray 07/02/22 01:13 Fluticasone Propionate 0.05% Na Spr 16 Gm Btl (*Bkc) NASAL DAILY PRN allergy symptoms Levothyroxine Sodium 100 mcg 07/02/22 06:30
[2022-07-02 14:00] VITALS: BP 150/84; PULSE 76; RESP 18; TEMP 36.4; O2SAT 98
[2022-07-02] MEDS: FLUTICASONE PROPIONATE 0.05% NA SPR 16 GM BTL (*BKC) 1 SPRAY NASAL (20:08)
[2022-07-02 20:17] VITALS: BP 154/87; PULSE 78; RESP 18; TEMP 36.1; O2SAT 95
--- NOTE | 2022-07-03 | ECHO_ITS ---
Patient Info Name: Val Smith Age: 62 years : 1960 Gender: Female Ht: 71 in Wt: 318 lbs BSA: 2.76 m2 HR: 75 bpm BP: 148 / 72 mmHg Technical Quality: Poor Exam Date: 07/03/2022 2:49 PM Exam Location: [facility] Patient Status: Outpatient Admit Date: 07/01/2022 Staff Ordering Physician: Krystal Bowden MD Steaming Cabinet Tender: Bismark Shin, TYRON, RT Attending Provider: Krystal Bowden MD Referring Physician: Dennise LEWIS; Exam Type: CA echo dop color flow w con Study Info Indications I26.99 - Other pulmonary embolism without acute cor pulmonale Complete two-dimensional, color flow and Doppler transthoracic echocardiogram is performed with contrast to opacify the left ventricle and to improve the deliniation of the left ventricle endocardial borders. Summary 1. Technically suboptimal study due to poor sonographic images. 2. Definity contrast administered improved wall motion interpretation. 3. Left ventricular chamber dimension is normal. 4. Left ventricular systolic function is normal, estimated at 65-70%. 5. The left ventricular diastolic function is grade I diastolic dysfunction. 6. E/e' 7 is not elevated. 7. Dilated inferior vena cava with >50% collapse upon inspiration consistent with elevated right atrial pressure, 10 mmHg. Left Ventricle E/e' 7 is not elevated. Definity contrast administered improved wall motion interpretation. Technically suboptimal study due to poor sonographic images. Left ventricular chamber dimension is normal. Left ventricular systolic function is normal, estimated at 65-70%. The left ventricular diastolic function is grade I diastolic dysfunction. Right Ventricle Right ventricular systolic function is normal based on normal TAPSE 2.2 cm. Right ventricular chamber dimension is not well visualized. Left Atria Left atrial chamber dimension is normal. Right Atria Right atrial chamber dimension is normal. Aortic Valve The aortic valve is probable trileaflet. There is no aortic valve stenosis. There is no aortic valve regurgitation. Pulmonic Valve There is no pulmonic regurgitation. Mitral Valve There is no mitral valve stenosis. There is no mitral valve regurgitation. Tricuspid Valve There is no tricuspid valve regurgitation. Pericardium/Pleural There is no pericardial effusion. Inferior Vena Cava Dilated inferior vena cava with >50% collapse upon inspiration consistent with elevated right atrial pressure, 10 mmHg. Aorta The aortic root size at the sinus of Valsalva is normal. Left Ventricular Outflow Tract Name Value Normal LVOT 2D LVOT Diameter 2.18 cm LVOT Doppler LVOT Peak Gradient 3 mmHg LVOT Mean Gradient 1 mmHg LVOT VTI 18.62 cm LVOT VTI/AV VTI Ratio 0.97 LVOT Stroke Volume 69.48 ml LVOT CO 5.43 l/min LVOT CI 1.97 L/min/m2 Mitral Valve Name
[2022-07-03 04:15] VITALS: BP 148/72; PULSE 72; RESP 19; TEMP 36.5; O2SAT 93
[2022-07-03] MEDS: LEVOTHYROXINE SODIUM 100 MCG TABLET PO (05:36)
[2022-07-03] MEDS: LEVOTHYROXINE SODIUM 75 MCG TABLET PO (05:36)
[2022-07-03 05:50] LABS: Hematocrit 45.7 % (37.0-47.0); Hemoglobin 14.6 g/dL (12.0-15.0); Mean Corpuscular HGB Conc 31.9 g/dl (32-36); Mean Corpuscular Hemoglobin 27.9 pg (26-34); Mean Corpuscular Volume 87.2 fl (80-100); Mean Platelet Volume 9.3 fl (7.4-10.4); Platelet Count Result 286 k/mm3 (150-375); Red Blood Count 5.24 M/mm3 (4.2-5.4); White Blood Count 6.7 K/mm3 (4.5-10.0)
[2022-07-03 06:03] LABS: Alanine Aminotransferase 25 U/L (6-35); Albumin Level 4.1 g/dL (3.5-5.1); Alkaline Phosphatase 96 U/L (38-126); Anion Gap 3 mmol/L (8-16); Aspartate Amino Transferase 27 U/L (14-36); Bilirubin,Total 0.6 mg/dL (0.2-1.3); Blood Urea Nitrogen 16 mg/dL (7-17); Calcium 8.4 mg/dL (8.4-10.2); Carbon Dioxide 33 mmol/L (22-30); Chloride 102 mmol/L (98-107); Estimated CRCL calculation 91 ml/min; Estimated Glomerular Filt Rate > 60; Glucose 104 mg/dL (65-110); Potassium 3.7 mmol/L (3.4-5.0); Sodium 138 mmol/L (137-145)
[2022-07-03] MEDS: ACETAMINOPHEN 325 MG TABLET PO (08:00)
--- NOTE | 2022-07-03 08:38 | PM.DS ---
DS: Admitting Diagnosis Discharge Date 07/03/22 Admitting Diagnosis Pulmonary embolism DS: Discharge Diagnosis Discharge Diagnosis (1) Pulmonary embolism: Code(s): I26.99 - Other pulmonary embolism without acute cor pulmonale Status: Acute Assessment and Plan: Patient with history of pulmonary embolism and 2020. At that time patient states that she [facility] is been the car traveling for approximately 17 hours. Two but Eliquis to be taken for 6-7 months. She completed the therapy. CTA chest shows pulmonary embolism with low clot burden in the posterior segmental pulmonary artery of the right upper lobe. Anti thrombin iii, protein S and C in process Heme-Onc consult Prior history on Eliquis terminated is 7 months after episode Currently on therapeutic Lovenox Echocardiogram ordered. Venous Doppler bilateral lower extremities negative for DVT Patient denies tobacco use, hormone use, and recent travel. 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 (2) Obstructive sleep apnea (adult) (pediatric): Code(s): G47.33 - Obstructive sleep apnea (adult) (pediatric) Status: Acute Assessment and Plan: Continue CPAP (3) Hypertension: Code(s): I10 - Essential (primary) hypertension Status: Acute Assessment and Plan: Continue home meds Continue to monitor DS: Summary Hospital Course Reason for hospitalization: pulmonary embolism Hospital Course: This is a 62-year-old female with past medical history of hypertension, hypothyroidism, GOLD and pulmonary embolism in 2019 the presented to the ED on 07/01/2022 with chest discomfort that is similar to feeling she had with her 1st PE. Patient did not have any shortness of breath, hemoptysis, chest pain, palpitations, diaphoresis, syncope, calf pain. She also denies recent travel, recent surgeries, tobacco use, and hormone replacement therapy. 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 CTA of the chest read as pulmonary embolism with low clot burden in the posterior segmental pulmonary artery of the right lower lobe. Patient started on therapeutic Lovenox injections. Due to prior PE antithrombin iii, protein S and protein ordered. Heme Onc consulted for possible hypercoagulable disorder. Hematology will follow up with patient in the office. By lower extremity ultrasound negative for DVT. Echocardiogram ordered. Patient had prior therapy with Eliquis for 6-7 months for prior pulmonary embolism PE. Patient's symptoms of chest discomfort has resolved. She is not requiring oxygen supplementation. She denies palpitations and feelings of racing heart, shortness of breath and chest pain. Will start patient on Eliquis 10 mg b.i.d. for 7 days then 5 mg b.i.d. thereafter. Patient's labs and vital signs are stable and she is medically clear for discharge. Will call patient with echocardiogram results. Time Spent with Patient Time attestation: Total time spent providing and/or coordinating discharge services: Exam Narrative: GENERAL: Comfortable, no acute distress, morbid obesity HENMT: moist mucous membranes EYES: EOM intact b/l NECK: no lymphadenopathy RESPIRATORY: clear to auscultation CARDIO: RRR GI: soft, nontender, bowel sounds present SKIN: no rashes EXTREMITIES: no edema, redness or tenderness DS: Data Data Completed and Pending Labs on day of discharge: Labs from last 24 hours 07/03/22 07/03/22 05:32 05:32 WBC 6.7 RBC 5.24 Hgb 14.6 Hct 45.7 MCV 87.2 MCH 27.9 MCHC 31.9 L RDW 13.0 Plt Count 286 MPV 9.3 Sodium 138 Potassium 3.7 Chloride 102 Carbon Dioxide 33 H Anion Gap 3 L BUN 16 Creatinine 0.90 Estim Creat Clear Calc 91 Estimated GFR > 60 Glucose 104 Calcium 8.4 Total Bilirubin 0.6 AST 27 ALT 25 Alkaline Phosphatase 96 Total Protein 8.0 Albumin 4.1
[2022-07-03] MEDS: lisinopriL 10 MG TABLET PO (09:08)
[2022-07-03] MEDS: ENOXAPARIN 80 MG/0.8 ML SYRINGE 145 MG SUB-Q (09:09)
[2022-07-03 11:46] LABS: Magnesium 2.3 mg/dL (1.6-2.3)
--- NOTE | 2022-07-03 12:58 | PDONCCN ---
HPI - Date of Consult Date/Time: 07/03/22 12:58 Requesting Physician: Krystal Bowden MD Primary Care Provider: Guillermo Romero MD - Consult Narrative Reason for consult: Recurrent pulmonary embolism Narrative: Val Smith is a 62 year old female with history of provoked pulmonary embolism diagnosed in 1999 after [address] She was treated with 6 months of Eliquis at that time. Patient also has a history of morbid obesity, hyper tension, hypothyroidism and sleep apnea. Lately she is not quite active due to bilateral knee discomfort. She denies any history of smoking. There is a family history of blood clot in the mother who also had stroke. She denies use of any hormone therapy. She came into the hospital with feeling of uneasiness and some chest discomfort without any shortness of breath. CT chest angiogram was performed that showed PE involving posterior segment of the right upper lobe with small clot burden. Bilateral lower extremity Doppler studies were performed that showed no evidence of DVT. She was started on Lovenox and already feeling better. Review of Systems - Review of Systems All systems reviewed & are unremarkable except as noted in HPI and bel - Neurologic Denies syncope, Denies focal weakness, Denies sensory deficit, Denies weakness PMFSH Medical History: Medical History (Last Reviewed 07/01/22 @ 18:34 by Lina Saunders MD) Hypertension Hyperthyroidism Morbid (severe) obesity due to excess calories Obstructive sleep apnea (adult) (pediatric) Mild (AHI 9.9) 2019 Polycythemia Post-surgical hypothyroidism Pulmonary embolism Onset Date: 03/2019 Surgical History: Surgical History (Last Reviewed 07/01/22 @ 18:34 by Lina Saunders MD) History of appendectomy Onset Date: 1996 History of thyroidectomy Onset Date: ~1977 History of tonsillectomy and adenoidectomy Onset Date: 1971 Family History: Family History (Last Reviewed 07/01/22 @ 22:13 by Gi Herndon RN) Mother History of blood clots Diabetes mellitus Hypertension Breast cancer Acute myocardial infarction Cerebrovascular accident Heart disease Father Diabetes mellitus Hypertension Sibling Breast cancer Grandparent Cerebrovascular accident Grandparent Cerebrovascular accident - Social History Social History: Social History (Last Reviewed 07/01/22 @ 18:34 by Lina Saunders MD) Gender Identity: Gender identity (if verbalized by the patient): Female Sexual Orientation: Sexual Orientation (if Verbalized by the Patient): Straight or Heterosexual Alcohol Use: Alcohol intake: current Drinks per week: 1 Alcohol use details: Occasional Substance Use: Substance use: never Substance use type: does not use Others: Spiritual care concerns: No Agree to blood products: Yes Living Arrangements: Living arrangements: with family Oppucation/Education: Occupation/Education: occupation Smoking Status: Smoking status: Never smoker Tobacco type: cigarettes Smoking Pack-years: Smoking packs per day: 1 Smoking cigarettes per day: 2.0 Years smoked: 2 Smoking pack-years: 0.10 Social Determinants of Health: Has the Lack of Transportation Kept You From Medical Appointments or From Getting Medications?: No Within the Past 12 Months, Were You Worried Whether Your Food Would Run Out Before You Got Money to Buy More?: Never True What is Your Housing Situation Today?: I Have Housing Are You Worried That in the Next 2 Months, You May Not Have Your Own Housing to Live In?: No Do You Have Trouble Paying Your Heating Or Electricity Bill?: No Do You Have Trouble Paying For Medicines?: No Are You Currently Unemployed and Looking for Work?: No Highest Level of Education Completed: Bachelor's Degree Do You Have Trouble With Childcare or the Care of a Family Mem
[2022-07-03 14:00] VITALS: BP 156/90; PULSE 87; RESP 20; TEMP 37; O2SAT 94
[2022-07-03] MEDS: PERFLUTREN LIPID MICROSPHERES 1.5 ML VIAL DILUTED TO 10 ML TOTAL VOLUME IV PUSH (15:03)
--- NOTE | 2022-07-03 15:04 | IVDEFINITY ---
Prior to administration of IV Definity the patient was educated on the risks and benefits of the imaging enhancing agent including potential adverse side effects. The patient verbalized understanding. Allergies were verified. No exclusion criteria were identified and at least one of the following inclusion criteria were met: 1) physician request, 2) patient technically difficult to image (per the [place] [employer] Echocardi[employer] guidelines of two or more segments not discernable within the apical view), or 3) questionable left ventricular function. ?
[2022-07-03] MEDS: CYCLOBENZAPRINE HCL 10 MG TABLET PO (15:38)
[2022-07-05 23:05] LABS: Antithrombin III Activity 90 % normal (80-135)
== END 2022-07-03 16:30 | disposition home or self-care (01) ==
LOC: ANHED 18:14 → ANH2MED 21:46
PROVIDERS: Internal Medicine Critical Care Medicine; Admitting Provider Internal Medicine; Emergency Provider Emergency Medicine; PCP Family Medicine Adolescent Medicine; Visit Provider Internal Medicine
DX: I26.99 Other pulmonary embolism without acute cor pulmonale (principal); G47.33 Obstructive sleep apnea (adult) (pediatric); I11.9 Hypertensive heart disease without heart failure; E66.01 Morbid (severe) obesity due to excess calories; Z68.41 Body mass index [BMI] 40.0-44.9, adult; R07.9 Chest pain, unspecified; E05.90 Thyrotoxicosis, unspecified without thyrotoxic crisis or storm; M71.22 Synovial cyst of popliteal space [Baker], left knee; R11.0 Nausea; R42 Dizziness and giddiness; E89.0 Postprocedural hypothyroidism; D75.1 Secondary polycythemia; F10.90 Alcohol use, unspecified, uncomplicated; F19.90 Other psychoactive substance use, unspecified, uncomplicated; Z79.01 Long term (current) use of anticoagulants; Z79.51 Long term (current) use of inhaled steroids; Z79.899 Other long term (current) drug therapy; Z87.891 Personal history of nicotine dependence; Z86.711 Personal history of pulmonary embolism; Z82.49 Family history of ischemic heart disease and other diseases of the circulatory system
CPT/HCPCS: 36415; 71275; 80048; 80053; 83690; 83735; 83880; 84484; 85025; 85027; 85300; 85303; 85306; 85610; 85730; 93005; 93970; 96372; 96374; 99285; A9270; C8929; G0378; J1650; Q9957; Q9967

== ENCOUNTER 2022-07-06 18:38 | Emergency (ER) | payer OTHER, BC, SELFPAY ==
[2022-07-06 18:59] VITALS: BP 143/93; PULSE 97; RESP 16; TEMP 36.8; O2SAT 97
[2022-07-06 19:34] LABS: Basophils Absolute Auto 0.1 K/mm3 (0.0-0.1); Basophils Percent Auto 0.6 % (0.2-1.2); Eosinophils Absolute Auto 0.6 K/mm3 (0-0.3); Eosinophils Percent Auto 7.2 % (0-4.4); Hematocrit 42.6 % (37.0-47.0); Hemoglobin 13.8 g/dL (12.0-15.0); Immature Granulocyte Absolute 0.03 K/mm3 (0.00-0.031); Immature Granulocyte Percent A 0.4 % (0-0.5); Lymphocytes Absolute Auto 2.14 K/mm3 (0.9-3.2); Lymphocytes Percent Auto 25.1 % (18.3-44.2); Mean Corpuscular HGB Conc 32.4 g/dl (32-36); Mean Corpuscular Hemoglobin 28.1 pg (26-34); Mean Corpuscular Volume 86.8 fl (80-100); Mean Platelet Volume 9.6 fl (7.4-10.4); Monocytes Absolute Auto 0.6 K/mm3 (0.1-0.6); Monocytes Percent Auto 7.4 % (2.6-8.5); Neutrophils Absolute Auto 5.1 K/mm3 (1.3-6.7); Neutrophils Percent Auto 59.3 % (45.5-73.1); Platelet Count Result 316 k/mm3 (150-375); Red Blood Count 4.91 M/mm3 (4.2-5.4); Red Cell Distribution Width 13.2 % (11.5-14.5); White Blood Count 8.5 K/mm3 (4.5-10.0)
[2022-07-06 19:49] LABS: INR 1.2; Prothrombin Time 14.3 Seconds (11.1-14.7)
[2022-07-06 19:49] LABS: Anion Gap 5 mmol/L (8-16); Blood Urea Nitrogen 18 mg/dL (7-17); Calcium 8.2 mg/dL (8.4-10.2); Carbon Dioxide 31 mmol/L (22-30); Chloride 101 mmol/L (98-107); Estimated CRCL calculation 101 ml/min; Estimated Glomerular Filt Rate > 60; Glucose 119 mg/dL (65-110); Potassium 3.8 mmol/L (3.4-5.0); Sodium 137 mmol/L (137-145)
[2022-07-06 19:54] LABS: D Dimer 0.73 ug/mL (<0.48)
[2022-07-06 21:58] VITALS: PULSE 90; RESP 15
[2022-07-06 22:00] VITALS: BP 147/98; PULSE 80; RESP 16; O2SAT 97
--- NOTE | 2022-07-06 22:33 | ED.GENADULT ---
HPI - General Adult General Chief complaint: Unspecified Stated complaint: Bilateral leg pain Time Seen by Provider: 07/06/22 22:10 History of Present Illness HPI narrative: Patient is a 62-year-old female presenting with left leg pain. Patient was recently admitted for a PE. She has been on Eliquis for the last week. States that she was discharged from the hospital 4 days ago. States at that time she had a severe muscle spasm in her left leg. States that she was given a muscle relaxer which did not seem to help. Since that time she has had ongoing pain in her left leg especially with ambulation. Patient states that yesterday she wrapped it in an Javier wrap to try to help with the pain. When she took it off she noticed a bruise along her anterior vu. States that she also noticed some redness and warmth. States that she had a fever up to 100.5 yesterday. States that she took Tylenol which resolved the fever. She denies numbness or weakness. She denies new chest pain or shortness of breath. States that she has been compliant with her Eliquis. Denies further complaints. Related Data Home Medications Medication Instructions Recorded Confirmed cetirizine 10 mg tablet (Zyrtec) 10 mg PO DAILY PRN Allergic 08/25/21 07/01/22 Symptoms fluticasone propionate 50 1 spray intranasal DAILY PRN 08/25/21 07/01/22 mcg/actuation nasal allergy symptoms spray,suspension (Flonase Allergy Relief) olopatadine 0.7 % eye drops 1 drp EACH EYE DAILY PRN Eye 08/25/21 07/01/22 (Pataday Once Daily Relief) Irritation Allergies Allergy/AdvReac Type Severity Reaction Status Date / Time Penicillins Allergy Unknown Rash Verified 07/06/22 21:56 clindamycin AdvReac Unknown Abdominal Verified 07/06/22 21:56 Pain Review of Systems Review of Systems: All systems reviewed & are unremarkable except as noted in HPI and below PMFSH Past Medical History Medical History Hypertension Hyperthyroidism Morbid (severe) obesity due to excess calories Obstructive sleep apnea (adult) (pediatric) Mild (AHI 9.9) 2019 Polycythemia Post-surgical hypothyroidism Pulmonary embolism (03/2019) Surgical History Surgical History History of appendectomy (1996) History of thyroidectomy (~1977) History of tonsillectomy and adenoidectomy (1971) Family History Family History Mother History of blood clots Diabetes mellitus Hypertension Breast cancer Acute myocardial infarction Cerebrovascular accident Heart disease Father Diabetes mellitus Hypertension Sibling Breast cancer Grandparent Cerebrovascular accident Grandparent Cerebrovascular accident Social History Social History Social History: The patient lives in [place] with her . She designates her , Dwain, as her surrogate decision maker and she wishes to be a full code. 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 She smoked for a couple of years as a teenager. No alcohol or drug abuse. Smoking packs per day: 1 Smoking cigarettes per day: 20.0 Years smoked: 2 Smoking pack-years: 2.00 Smoking status: Never smoker Tobacco type: cigarettes Alcohol intake: current Drinks per week: 1 Alcohol use details: Occasional Substance use: never Substance use type: does not use Lack of Transportation: No Lack of Food: Never True Current Housing: I Have Housing Concerned About Future Housing: No Difficulty Paying Gas/Electric Bills: No Difficulty Paying for Meds: No Currently Unemployed: No Education: Bachelor's Degree Difficulty w/ Childcare or Family Care: No Living arrangements: with family Occupation/Education: occupation Gender identity (if verbalized by the patient): Female Sexual Orientation (if V
[2022-07-06] MEDS: DOXYCYCLINE HYCLATE 100 MG TABLET PO (22:48)
[2022-07-06] MEDS: CEPHALEXIN 500 MG CAPSULE PO (22:49)
[2022-07-06] MEDS: APIXABAN 5 MG TABLET 10 MG PO (22:49)
--- NOTE | 2022-07-06 23:03 | PC.NURSE ---
Report given to RICHARD Ruvalcaba
[2022-07-06 23:32] VITALS: BP 149/87; PULSE 78; RESP 18; O2SAT 24
== END 2022-07-06 23:40 | disposition home or self-care (01) ==
LOC: ANHED 22:46
PROVIDERS: Emergency Medicine; Emergency Provider Emergency Medicine; PCP Family Medicine Adolescent Medicine
DX: L03.116 Cellulitis of left lower limb (principal); I10 Essential (primary) hypertension; E89.0 Postprocedural hypothyroidism; G47.33 Obstructive sleep apnea (adult) (pediatric); D75.1 Secondary polycythemia; E66.01 Morbid (severe) obesity due to excess calories; Z86.711 Personal history of pulmonary embolism; Z68.41 Body mass index [BMI] 40.0-44.9, adult; Z87.891 Personal history of nicotine dependence; Z79.01 Long term (current) use of anticoagulants
CPT/HCPCS: 36415; 80048; 85025; 85380; 85610; 99283; A9270

== ENCOUNTER 2023-08-22 20:27 | Emergency (ER) | payer OTHER, BC, SELFPAY ==
--- NOTE | ~2023-08-22 | XR_ITS ---
XR knee LT 3V Ordering provider: Shameka Mac MD History: . fall; ecchymosis/pain medial aspect AND BRUISING . Comparison: None. FINDINGS: BONES: No acute fracture or dislocation. JOINT SPACES: Normal. Early marginal osteophytes seen in the patella which may indicate osteoarthriti c changes. SOFT TISSUES: Normal. IMPRESSION: No acute osseous abnormality left knee. Reviewed, dictated and finalized at location A.
[2023-08-22 20:30] VITALS: BP 147/107; PULSE 80; RESP 20; TEMP 36.6; O2SAT 98
--- NOTE | 2023-08-22 20:36 | ED.LOWEXIN ---
HPI - Extremity Injury (Lower) General Chief Complaint: Extremity Injury, Lower Stated Complaint: fall, knee pain Time Seen by Provider: 08/22/23 20:35 Source: patient Mode of arrival: ambulatory Limitations: no limitations History of Present Illness HPI Narrative: Patient presents with complaint of left knee pain. She fell earlier today and was seen at [place] urgent care. At that time her right knee and right foot were hurting her more and so she had these areas image. She received IM Toradol. Upon going home and elevating her legs and applying ice she noted that her left knee started to become painful and tight. She has some slight paresthesias inferiorly to the knee. She applied a compression bandage but with the pain persisting she decided to come to the emergency department to get this extremity imaged. She is on Eliquis for history of pulmonary embolism x2. Related Data Home Medications Medication Instructions Recorded Confirmed cetirizine 10 mg tablet (Zyrtec) 10 mg PO DAILY PRN Allergic 08/25/21 07/01/22 Symptoms fluticasone propionate 50 1 spray intranasal DAILY PRN 08/25/21 07/01/22 mcg/actuation nasal allergy symptoms spray,suspension (Flonase Allergy Relief) olopatadine 0.7 % eye drops 1 drp EACH EYE DAILY PRN Eye 08/25/21 07/01/22 (Pataday Once Daily Relief) Irritation Allergies Allergy/AdvReac Type Severity Reaction Status Date / Time Penicillins Allergy Unknown Rash Verified 06/26/23 08:42 clindamycin AdvReac Unknown Abdominal Verified 06/26/23 08:42 Pain PMFSH Past Medical History Medical History (Updated 08/23/23 @ 00:00 by Bryan Larson) Erysipelas of left lower extremity HX: anticoagulation Hypertension Hyperthyroidism Morbid (severe) obesity due to excess calories Obstructive sleep apnea (adult) (pediatric) Mild (AHI 9.9) 2019 Polycythemia Post-surgical hypothyroidism Pulmonary embolism (03/2019) 04/07 and 07/09 Surgical History Surgical History History of appendectomy (1996) History of thyroidectomy (~1977) History of tonsillectomy and adenoidectomy (1971) Family History Family History Mother History of blood clots Diabetes mellitus Hypertension Breast cancer Acute myocardial infarction Cerebrovascular accident Heart disease Father Diabetes mellitus Hypertension Sibling Breast cancer Grandparent Cerebrovascular accident Grandparent Cerebrovascular accident Social History Social History (Updated 06/26/23 @ 08:46 by Anni Saldaña) Social History: The patient lives in [place] with her . She designates her , Dwain, as her surrogate decision maker and she wishes to be a full code. 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 She smoked for a couple of years as a teenager. No alcohol or drug abuse. Smoking packs per day: 1 Smoking cigarettes per day: 20.0 Years smoked: 2 Smoking pack-years: 2.00 Smoking status: Never smoker Tobacco type: cigarettes Alcohol intake: current Drinks per week: 1 Alcohol use details: Occasional Substance use: never Substance use type: does not use Do You Feel Safe in your Home?: Yes Lack of Transportation: No Lack of Food: Never True Current Housing: I Have Housing Concerned About Future Housing: No Difficulty Paying Gas/Electric Bills: No Difficulty Paying for Meds: No Currently Unemployed: No Education: Bachelor's Degree Difficulty w/ Childcare or Family Care: No Living arrangements: with family Occupation/Education: occupation Gender identity (if verbalized by the patient): Female Sexual Orientation (if Verbalized by the Patient): Straight or Heterosexual Spiritual care concerns: No Agree to blood products: Yes Exam Narrative: GENERAL: Well-appearing, well-nourished, and in no acute distress. HEAD: Normocephalic,
[2023-08-22] MEDS: HYDROcodone/acetaminophen (*CRX) 5-325 MG TABLET 1 TAB PO (21:05)
== END 2023-08-22 22:17 | disposition home or self-care (01) ==
PROVIDERS: Emergency Provider Student in an Organized Health Care Education/Training Program; PCP Family Medicine Adolescent Medicine
DX: M25.562 Pain in left knee (principal); Z86.711 Personal history of pulmonary embolism; Z79.01 Long term (current) use of anticoagulants; I10 Essential (primary) hypertension; E66.01 Morbid (severe) obesity due to excess calories; Z68.41 Body mass index [BMI] 40.0-44.9, adult; G47.33 Obstructive sleep apnea (adult) (pediatric); E05.90 Thyrotoxicosis, unspecified without thyrotoxic crisis or storm
CPT/HCPCS: 73562; 99283; A9270

== ENCOUNTER 2023-09-03 17:38 | Observation (INO) | payer OTHER, BC, SELFPAY ==
[2023-09-03] VITALS (7 sets, daily range): BP systolic 118–187; BP diastolic 67–90; PULSE 78–100; RESP 16–20; TEMP 36.6–36.7; O2SAT 94–100
--- NOTE | ~2023-09-03 | US_ITS ---
EXAMINATION: US venous doppler [facility] DATE: 09/04/2023 10:48 INDICATION: Left lower limb pain, swelling and erythema. TECHNIQUE: Grayscale ultrasound images without and with compression and Doppler ultrasound images of the left lower extremity veins were obtained. COMPARISON: None. FINDINGS: The visualized portions of left common femoral vein, profunda (deep) femoral vein, femoral vein, popl iteal vein, peroneal veins, posterior tibial veins, gastrocnemius vein and greater saphenous vein out flow are patent. IMPRESSION: 1. No deep venous thrombosis in the left lower limb. Reviewed, dictated and finalized at location A.
--- NOTE | ~2023-09-03 | XR_ITS ---
EXAM: XR knee LT min 4V DATE: 09/03/2023 18:25 HISTORY: left knee pain from large drained blister . COMPARISON: 08/22/2023. FINDINGS: Normal mineralization. No fracture or dislocation. No lytic or blastic lesion. Mild tricom partmental osteoarthritis. Quadriceps enthesopathy. No erosion or periosteal change. Ill-defined soft tissue opacity over the anteromedial left knee may represent the described superficial drains or pam ining blister. No subcutaneous gas. No radiopaque foreign body. IMPRESSION: No acute osseous finding the left knee. Reviewed, dictated and finalized at location K.
--- NOTE | 2023-09-03 18:02 | ED.SKABFB ---
HPI - Skin/Abscess/Foreign Bdy General Chief complaint: Skin/Abscess/Foreign Body <Lesley Cole PA-C - Last Filed: 09/04/23 02:09> Stated complaint: left knee pain <Lesley Cole PA-C - Last Filed: 09/04/23 02:09> Time Seen by Provider: 09/03/23 17:53 <ROYCE Lee Last Filed: 09/04/23 02:09> Source: patient <ROYCE Lee Last Filed: 09/04/23 02:09> Mode of arrival: ambulatory <ROYCE Lee Last Filed: 09/04/23 02:09> Limitations: no limitations <Lesley Cole PA-C - Last Filed: 09/04/23 02:09> History of Present Illness HPI narrative: This is a 63-year-old female that presents to the emergency department for left lower extremity edema and erythema. Reports about 10 days ago she tripped and fell and landed on her knees. She had x-rays of her knees at that time which were negative. She saw her PCP who drained a blister on her knee one week ago. Reports she has had worsening redness and swelling of the lower extremity over the last couple of days. Denies fevers, decreased ROM or numbness. <Lesley Cole PA-C - Last Filed: 09/04/23 02:09> Related Data Home medications: Home Medications Medication Instructions Recorded Confirmed cetirizine 10 mg tablet (Zyrtec) 10 mg PO DAILY PRN Allergic 08/25/21 09/03/23 Symptoms fluticasone propionate 50 1 spray intranasal DAILY PRN 08/25/21 09/03/23 mcg/actuation nasal allergy symptoms spray,suspension (Flonase Allergy Relief) olopatadine 0.7 % eye drops 1 drp EACH EYE DAILY PRN Eye 08/25/21 09/03/23 (Pataday Once Daily Relief) Irritation triamcinolone acetonide 0.1 % 1 applic topical BID PRN Itching 08/27/23 09/03/23 topical cream levothyroxine 175 mcg tablet 175 mcg PO DAILY 09/03/23 09/03/23 (Synthroid) sulfamethoxazole 800 1 tablet PO BID 09/03/23 09/03/23 mg-trimethoprim 160 mg tablet (Bactrim DS) <Lesley Cole PA-C - Last Filed: 09/04/23 02:09> Allergies/Adverse reactions: Allergies Allergy/AdvReac Type Severity Reaction Status Date / Time Penicillins Allergy Unknown Rash Verified 09/03/23 17:51 clindamycin AdvReac Unknown Abdominal Verified 09/03/23 17:51 Pain <Lesley Cole PA-C - Last Filed: 09/04/23 02:09> Review of Systems Review of Systems: CONSTITUTIONAL: Denies fever SKIN: Reports redness and swelling MUSCULOSKELETAL: Reports joint pain, and myalgia. NEUROLOGIC: Denies numbness, or weakness. <Lesley Cole PA-C - Last Filed: 09/04/23 02:09> All systems reviewed & are unremarkable except as noted in HPI and below <Lesley Cole PA-C - Last Filed: 09/04/23 02:09> [facility] Past Medical History Medical History: Medical History (Updated 09/03/23 @ 21:19 by Lesley Cole PA-C) Erysipelas of left lower extremity HX: anticoagulation Hypertension Hyperthyroidism Morbid (severe) obesity due to excess calories Obstructive sleep apnea (adult) (pediatric) Mild (AHI 9.9) 2019 Polycythemia Post-surgical hypothyroidism Pulmonary embolism (03/2019) 04/07 and 07/09 <Lesley Cole PA-C - Last Filed: 09/04/23 02:09> Surgical History Surgical History: Surgical History History of appendectomy (1996) History of thyroidectomy (~1977) History of tonsillectomy and adenoidectomy (1971) <Lesley Cole PA-C - Last Filed: 09/04/23 02:09> Family History Family History: Family History Mother History of blood clots Diabetes mellitus Hypertension Breast cancer Acute myocardial infarction Cerebrovascular accident Heart disease Father Diabetes mellitus Hypertension Sibling Breast cancer Grandparent Cerebrovascular accident Grandparent Cerebrovascular accident <Lesley Cole PA-C - Last Filed: 09/04/23 02:09> Social History Social History: Social History (Updated
[2023-09-03 18:46] LABS: Basophils Absolute Auto 0.1 K/mm3 (0.0-0.1); Basophils Percent Auto 0.7 % (0.2-1.2); Eosinophils Absolute Auto 0.4 K/mm3 (0-0.3); Eosinophils Percent Auto 5.7 % (0-4.4); Immature Granulocyte Absolute 0.02 K/mm3 (0.00-0.031); Immature Granulocyte Percent A 0.3 % (0-0.5); Lymphocytes Absolute Auto 2.18 K/mm3 (0.9-3.2); Mean Corpuscular HGB Conc 32.6 g/dl (32-36); Mean Corpuscular Hemoglobin 28.2 pg (26-34); Mean Corpuscular Volume 86.7 fl (80-100); Mean Platelet Volume 9.2 fl (7.4-10.4); Monocytes Absolute Auto 0.5 K/mm3 (0.1-0.6); Monocytes Percent Auto 6.6 % (2.6-8.5); Neutrophils Absolute Auto 3.7 K/mm3 (1.3-6.7); Neutrophils Percent Auto 54.7 % (45.5-73.1); Platelet Count Result 306 k/mm3 (150-375); Red Blood Count 4.96 M/mm3 (4.2-5.4); Red Cell Distribution Width 13.7 % (11.5-14.5); White Blood Count 6.8 K/mm3 (4.5-10.0)
[2023-09-03 18:59] LABS: Partial Thromboplastin Time 32.4 Seconds (22.3-36.8); Prothrombin Time 13.9 Seconds (11.1-14.7)
[2023-09-03 19:04] LABS: Anion Gap 8 mmol/L (4-12); Blood Urea Nitrogen 22 mg/dL (7-17); CRP 1.1 mg/dL (<1.0); Calcium 8.5 mg/dL (8.4-10.2); Carbon Dioxide 23 mmol/L (22-30); Chloride 106 mmol/L (98-107); Estimated Glomerular Filt Rate 46; Glucose 92 mg/dL (65-110); Potassium 4.1 mmol/L (3.4-5.0); Sodium 137 mmol/L (137-145)
[2023-09-03 19:12] LABS: Erythrocyte Sedimentation Rate 20 mm/hr (0-20)
[2023-09-03] MEDS: ceFAZolin 1 GM/NS 50 ML 1 GM/50 ML BAG IVPB (20:49)
--- NOTE | 2023-09-03 23:13 | ADMGEN ---
This patient, Val Smith, was admitted to [facility] Surg Room 322-02. Patient/family oriented to hospital policies and general routines including ID bracelet, bed and alarms, visiting hours, pain management, procedures, bathroom and other care routines, personal items, smoking policy, room service/diet, and visiting hours. Information on how to activate the Rapid Response Team has been discussed. Patient/Family are encouraged to report perceived risks to care and to ask questions if they do not understand what they are told or what they should do.
--- NOTE | 2023-09-04 01:41 | PM.IMHP ---
H&P: HPI History of Present Illness Date/Time: 09/04/23 01:41 Chief Complaint: Left leg swelling no redness. Narrative: 63-year-old female past medical history of hypertension, PE on Eliquis, S hypothyroidism status post the the the, obstructive sleep apnea, polycythemia, presented to ER because of worsening leg leg swelling. Patient reported under 50 small she had a fall she described was mechanical and landed on her left knee started having swelling of the left in accompanied by pain, Also developed a blister at the left knee. Noted that she follow-up with her primary care who started on Levaquin, no improvement in symptoms and she was switched to Bactrim. Patient noted to have blister was drained by her primary care physician. However she presented to the ER on account of worsening neck swelling. Reported chills but denies any fever, vomiting abdomen pain diarrhea dysuria no focal symptoms. ER evaluation interval for temperature 97.9?, pulse rate 83, respiratory 18, saturation 94% on room air, blood pressure 118/75. left L3 through 4 creatinine 1.2, BUNunremarkable. X-ray left knee are remarkable. Review of Systems Review of Systems: All other systems were reviewed and negative except as noted in the history above. [facility] Past Medical History Medical History (Updated 09/03/23 @ 21:19 by Lesley Cole PA-C) Erysipelas of left lower extremity HX: anticoagulation Hypertension Hyperthyroidism Morbid (severe) obesity due to excess calories Obstructive sleep apnea (adult) (pediatric) Mild (AHI 9.9) 2019 Polycythemia Post-surgical hypothyroidism Pulmonary embolism (03/2019) 04/07 and 07/09 Surgical History Surgical History History of appendectomy (1996) History of thyroidectomy (~1977) History of tonsillectomy and adenoidectomy (1971) Family History Family History Mother History of blood clots Diabetes mellitus Hypertension Breast cancer Acute myocardial infarction Cerebrovascular accident Heart disease Father Diabetes mellitus Hypertension Sibling Breast cancer Grandparent Cerebrovascular accident Grandparent Cerebrovascular accident Social History Social History (Updated 06/26/23 @ 08:46 by Anni Saldaña) Social History: The patient lives in [place] with her . She designates her , Dwain, as her surrogate decision maker and she wishes to be a full code. 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 She smoked for a couple of years as a teenager. No alcohol or drug abuse. Smoking packs per day: 1 Smoking cigarettes per day: 20.0 Years smoked: 2 Smoking pack-years: 2.00 Smoking status: Never smoker Tobacco type: cigarettes Alcohol intake: former Drinks per week: 1 Alcohol use details: Occasional Substance use: never Substance use type: does not use Do You Feel Safe in your Home?: Yes Lack of Transportation: No Lack of Food: Never True Current Housing: I Have Housing Concerned About Future Housing: No Difficulty Paying Gas/Electric Bills: No Difficulty Paying for Meds: No Currently Unemployed: No Education: Bachelor's Degree Difficulty w/ Childcare or Family Care: No Living arrangements: with family Occupation/Education: occupation Gender identity (if verbalized by the patient): Female Sexual Orientation (if Verbalized by the Patient): Straight or Heterosexual Spiritual care concerns: No Agree to blood products: Yes Meds Home Medications and Allergies Home Medications Medication Instructions Recorded Confirmed Type cetirizine 10 mg tablet (Zyrtec) 10 mg PO DAILY PRN Allergic 08/25/21 09/03/23 History Symptoms fluticasone propionate 50 1 spray intranasal DAILY PRN 08/25/21 09/03/23 History mcg/actuation nasal allergy symptoms spray,suspension (Flonase Allergy Relief)
[2023-09-04] MEDS: VANCOMYCIN 1,500 MG/NS 500 ML 1,500 MG/500 ML BAG 250 MG IVPB ×2 (02:35→20:42)
[2023-09-04] MEDS: LEVOTHYROXINE SODIUM 100 MCG TABLET PO (05:34)
[2023-09-04] MEDS: LEVOTHYROXINE SODIUM 75 MCG TABLET PO (05:34)
[2023-09-04 06:00] VITALS: BP 119/80; PULSE 71; RESP 18; TEMP 36.6; O2SAT 95
[2023-09-04 09:54] LABS: Basophils Absolute Auto 0.1 K/mm3 (0.0-0.1); Basophils Percent Auto 0.8 % (0.2-1.2); Eosinophils Absolute Auto 0.3 K/mm3 (0-0.3); Eosinophils Percent Auto 5.4 % (0-4.4); Hematocrit 42.5 % (37.0-47.0); Hemoglobin 13.4 g/dL (12.0-15.0); Immature Granulocyte Absolute 0.01 K/mm3 (0.00-0.031); Immature Granulocyte Percent A 0.2 % (0-0.5); Lymphocytes Absolute Auto 1.69 K/mm3 (0.9-3.2); Lymphocytes Percent Auto 27.9 % (18.3-44.2); Mean Corpuscular HGB Conc 31.5 g/dl (32-36); Mean Corpuscular Hemoglobin 27.7 pg (26-34); Mean Corpuscular Volume 87.8 fl (80-100); Mean Platelet Volume 9.3 fl (7.4-10.4); Monocytes Absolute Auto 0.3 K/mm3 (0.1-0.6); Monocytes Percent Auto 5.1 % (2.6-8.5); Neutrophils Absolute Auto 3.7 K/mm3 (1.3-6.7); Neutrophils Percent Auto 60.6 % (45.5-73.1); Platelet Count Result 293 k/mm3 (150-375); Red Blood Count 4.84 M/mm3 (4.2-5.4); Red Cell Distribution Width 13.7 % (11.5-14.5); White Blood Count 6.1 K/mm3 (4.5-10.0)
[2023-09-04] MEDS: APIXABAN 5 MG TABLET PO ×2 (10:02→20:42)
[2023-09-04 10:07] LABS: Anion Gap 7 mmol/L (4-12); Blood Urea Nitrogen 15 mg/dL (7-17); Calcium 8.5 mg/dL (8.4-10.2); Carbon Dioxide 24 mmol/L (22-30); Chloride 106 mmol/L (98-107); Estimated CRCL calculation 81 ml/min; Estimated Glomerular Filt Rate 56; Glucose 131 mg/dL (65-110); Potassium 4.2 mmol/L (3.4-5.0); Sodium 137 mmol/L (137-145)
--- NOTE | 2023-09-04 14:11 | PM.IMPN ---
Progress Note: A&P Assessment and Plan (1) Cellulitis: Qualifiers: Laterality: left Site of cellulitis: extremity Site of cellulitis of extremity: lower extremity Qualified Code(s): L03.116 - Cellulitis of left lower limb Code(s): L03.90 - Cellulitis, unspecified Status: Acute (2) Contusion of left knee, subsequent encounter: Code(s): S80.02XD - Contusion of left knee, subsequent encounter Status: Acute (3) Postprocedural hypothyroidism: Code(s): E89.0 - Postprocedural hypothyroidism Status: Acute (4) Hypertension: Code(s): I10 - Essential (primary) hypertension Status: Acute Plan Left leg cellulitis rule out DVT venous Dopplers ordered. Blood cultures, start vancomycin Monitor. 09/03: Venous Doppler negative. Continue with IV antibiotics today. Cultures pending Left knee contusion from fall Continue p.r.n. pain control. x-ray unremarkable Hypertension Hold lisinopril due to mild elevation in creatinine Reassess renal function resumed tomorrow accordingly. 09/03: Creatinine normal today. Restart lisinopril tomorrow. Blood pressures were reviewed hypothyroidism from thyroidectomy Continue levothyroxine. Obstructive sleep apnea Continue home CPAP. History of pulmonary embolism on Eliquis Continue Eliquis. DVT prophylaxis on Eliquis. Subjective Date/time seen: 09/04/23 14:11 Interval history: This is a 63-year-old female with past medical history of hypertension, pulmonary embolism on Eliquis, hypothyroidism, obstructive sleep apnea, and polycythemia who presented to the ER with complaints of worsening left knee swelling. According to the patient last weekend she fell walking into her home and landed on her knees. Initially her right knee and right ankle were bothering her so she went to the urgent care for x-rays which were negative. Later that night left knee started swelling and developed a blister. Her primary care provider did I and D in the office and started her on Levaquin on Sunday-. she started to develop fever and chills so she contacted her primary care provider and I switched her to Bactrim. She was on Bactrim Sunday, Sunday, Sunday, and Sunday. She noted progressive swelling and erythema to her knee lower leg so she presented to the ED. in the ED x-ray was negative, venous Dopplers were ordered which were also negative. She was started on cefazolin and IV vancomycin. 09/03 patient is seen today resting in bed in no acute distress. Her leg still has edema distal to her left knee with an open non draining blister. The area has decreased sensation but is not particularly painful. She states that this swelling is improving. Initially does thinking of discharging her however since she has failed to oral antibiotic courses I recommend that she should continue with IV antibiotics today and hopefully discharge tomorrow. We are also waiting on blood cultures to result. Review of Systems Review of Systems: All other systems were reviewed and negative except as noted in the history above. Exam Narrative: General: well appearing, appears stated age. HEENT: normocephalic, atraumatic. Mucous membranes moist. EOMI, PERRLA, bilateral sclera anicteric, no conjunctival injection. Neck supple without JVD, lymphadenopathy, or bruit. Respiratory: clear to auscultation bilaterally. No rales/rhonic/wheezes. Cardiovascular: Regular rate and rhythm, normal S1-S2 upon auscultation. No murmurs, rubs, or clicks. PMI is nondisplaced, capillary refill less than 3 second. Abdomen: Soft, round, no pulsatile masses, nondistended and nontender. No rebound, no guarding. No CVA tenderness, no hepatosplenomegaly. Bowel sounds present to all four quadrants. No high pitch or tinkling sounds, resonant to percussion. Extremities: No cyanosis, clubbing, or edema present. Pulses are palpable 2/2. Active ROM t
[2023-09-04 14:55] VITALS: BP 137/64; PULSE 71; RESP 18; TEMP 35.7; O2SAT 94
[2023-09-04] MEDS: lisinopriL 10 MG TABLET PO (15:39)
[2023-09-04 21:27] VITALS: BP 149/75; PULSE 77; RESP 18; TEMP 36.8; O2SAT 97
[2023-09-05 05:36] VITALS: BP 139/88; PULSE 72; RESP 18; TEMP 36.4; O2SAT 96
[2023-09-05] MEDS: LEVOTHYROXINE SODIUM 75 MCG TABLET PO (06:06)
[2023-09-05] MEDS: LEVOTHYROXINE SODIUM 100 MCG TABLET PO (06:06)
[2023-09-05] MEDS: SALINE 0.65% NAS SOLN 44 ML BTL 1 SPRAY NASAL (06:07)
[2023-09-05 06:18] LABS: Basophils Percent Auto 0.8 % (0.2-1.2); Eosinophils Absolute Auto 0.3 K/mm3 (0-0.3); Eosinophils Percent Auto 6.6 % (0-4.4); Hematocrit 41.3 % (37.0-47.0); Hemoglobin 13.1 g/dL (12.0-15.0); Immature Granulocyte Absolute 0.01 K/mm3 (0.00-0.031); Immature Granulocyte Percent A 0.2 % (0-0.5); Lymphocytes Absolute Auto 1.71 K/mm3 (0.9-3.2); Lymphocytes Percent Auto 33.3 % (18.3-44.2); Mean Corpuscular HGB Conc 31.7 g/dl (32-36); Mean Corpuscular Volume 88.2 fl (80-100); Mean Platelet Volume 9.2 fl (7.4-10.4); Monocytes Absolute Auto 0.4 K/mm3 (0.1-0.6); Monocytes Percent Auto 7.8 % (2.6-8.5); Neutrophils Absolute Auto 2.6 K/mm3 (1.3-6.7); Neutrophils Percent Auto 51.3 % (45.5-73.1); Platelet Count Result 260 k/mm3 (150-375); Red Blood Count 4.68 M/mm3 (4.2-5.4); Red Cell Distribution Width 13.7 % (11.5-14.5); White Blood Count 5.1 K/mm3 (4.5-10.0)
[2023-09-05 06:26] LABS: Lactic Acid Reflex 0.8 mmol/L (0.7-2.0)
[2023-09-05 06:31] LABS: Alanine Aminotransferase 20 U/L (6-35); Albumin Level 3.7 g/dL (3.5-5.1); Alkaline Phosphatase 85 U/L (38-126); Anion Gap 7 mmol/L (4-12); Aspartate Amino Transferase 32 U/L (14-36); Bilirubin,Total 0.5 mg/dL (0.2-1.3); Blood Urea Nitrogen 14 mg/dL (7-17); Calcium 8.4 mg/dL (8.4-10.2); Carbon Dioxide 26 mmol/L (22-30); Chloride 105 mmol/L (98-107); Estimated CRCL calculation 90 ml/min; Estimated Glomerular Filt Rate > 60; Glucose 106 mg/dL (65-110); Potassium 3.9 mmol/L (3.4-5.0); Sodium 138 mmol/L (137-145)
--- NOTE | 2023-09-05 08:19 | PM.IMPN ---
Progress Note: A&P Assessment and Plan (1) Cellulitis: Qualifiers: Laterality: left Site of cellulitis: extremity Site of cellulitis of extremity: lower extremity Qualified Code(s): L03.116 - Cellulitis of left lower limb Code(s): L03.90 - Cellulitis, unspecified Status: Acute (2) Contusion of left knee, subsequent encounter: Code(s): S80.02XD - Contusion of left knee, subsequent encounter Status: Acute (3) Postprocedural hypothyroidism: Code(s): E89.0 - Postprocedural hypothyroidism Status: Acute (4) Hypertension: Code(s): I10 - Essential (primary) hypertension Status: Acute Plan Left leg cellulitis rule out DVT venous Dopplers ordered- no DVT Blood cultures, start vancomycin Monitor. 09/03: Venous Doppler negative. Continue with IV antibiotics today. Cultures pending Left knee contusion from fall Continue p.r.n. pain control. x-ray unremarkable Hypertension Hold lisinopril due to mild elevation in creatinine Reassess renal function resumed tomorrow accordingly. 09/03: Creatinine normal today. Restart lisinopril tomorrow. Blood pressures were reviewed- stable hypothyroidism from thyroidectomy Continue levothyroxine. Obstructive sleep apnea Continue home CPAP. History of pulmonary embolism on Eliquis Continue Eliquis. DVT prophylaxis on Eliquis. Time Spent With Patient Time with patient: 25 - 35 minutes Subjective Date/time seen: 09/05/23 08:19 Interval history: This is a 63-year-old female with past medical history of hypertension, pulmonary embolism on Eliquis, hypothyroidism, obstructive sleep apnea, and polycythemia who presented to the ER with complaints of worsening left knee swelling. According to the patient last weekend she fell walking into her home and landed on her knees. Initially her right knee and right ankle were bothering her so she went to the urgent care for x-rays which were negative. Later that night left knee started swelling and developed a blister. Her primary care provider did I and D in the office and started her on Levaquin on 08-23. she started to develop fever and chills so she contacted her primary care provider and I switched her to Bactrim. She was on Bactrim Sunday, Sunday, Sunday, and Sunday. She noted progressive swelling and erythema to her knee lower leg so she presented to the ED. in the ED x-ray was negative, venous Dopplers were ordered which were also negative. She was started on cefazolin and IV vancomycin. 09/03 patient is seen today resting in bed in no acute distress. Her leg still has edema distal to her left knee with an open non draining blister. The area has decreased sensation but is not particularly painful. She states that this swelling is improving. Initially does thinking of discharging her however since she has failed to oral antibiotic courses I recommend that she should continue with IV antibiotics today and hopefully discharge tomorrow. We are also waiting on blood cultures to result. 09/04- Blood cultures negative so far. Review of Systems Review of Systems: All other systems were reviewed and negative except as noted in the history above. Exam Narrative: General: well appearing, appears stated age. HEENT: normocephalic, atraumatic. Mucous membranes moist. EOMI, PERRLA, bilateral sclera anicteric, no conjunctival injection. Neck supple without JVD, lymphadenopathy, or bruit. Respiratory: clear to auscultation bilaterally. No rales/rhonic/wheezes. Cardiovascular: Regular rate and rhythm, normal S1-S2 upon auscultation. No murmurs, rubs, or clicks. PMI is nondisplaced, capillary refill less than 3 second. Abdomen: Soft, round, no pulsatile masses, nondistended and nontender. No rebound, no guarding. No CVA tenderness, no hepatosplenomegaly. Bowel sounds present to all four quadrants. No high pitch or tinkling sounds, re
[2023-09-05] MEDS: lisinopriL 10 MG TABLET PO (09:35)
[2023-09-05] MEDS: APIXABAN 5 MG TABLET PO (09:35)
[2023-09-05] MEDS: VANCOMYCIN 1,500 MG/NS 500 ML 1,500 MG/500 ML BAG 250 MG IVPB (09:35)
--- NOTE | 2023-09-05 12:53 | PM.DS ---
DS: Admitting Diagnosis Discharge Date 09/04 Admitting Diagnosis cellulitis DS: Discharge Diagnosis Discharge Diagnosis (1) Cellulitis: Qualifiers: Laterality: left Site of cellulitis: extremity Site of cellulitis of extremity: lower extremity Qualified Code(s): L03.116 - Cellulitis of left lower limb Code(s): L03.90 - Cellulitis, unspecified Status: Acute (2) Contusion of left knee, subsequent encounter: Code(s): S80.02XD - Contusion of left knee, subsequent encounter Status: Acute (3) Postprocedural hypothyroidism: Code(s): E89.0 - Postprocedural hypothyroidism Status: Acute (4) Hypertension: Code(s): I10 - Essential (primary) hypertension Status: Acute Plan Final dx: celluliits Left leg cellulitis rule out DVT venous Dopplers ordered- no DVT Blood cultures, start vancomycin Monitor. 09/03: Venous Doppler negative. Continue with IV antibiotics today. Cultures pending Left knee contusion from fall Continue p.r.n. pain control. x-ray unremarkable Hypertension Hold lisinopril due to mild elevation in creatinine Reassess renal function resumed tomorrow accordingly. 09/03: Creatinine normal today. Restart lisinopril tomorrow. Blood pressures were reviewed- stable hypothyroidism from thyroidectomy Continue levothyroxine. Obstructive sleep apnea Continue home CPAP. History of pulmonary embolism on Eliquis Continue Eliquis. DVT prophylaxis on Eliquis. DS: Summary Hospital Course Hospital Course: Interval history: This is a 63-year-old female with past medical history of hypertension, pulmonary embolism on Eliquis, hypothyroidism, obstructive sleep apnea, and polycythemia who presented to the ER with complaints of worsening left knee swelling. According to the patient last weekend she fell walking into her home and landed on her knees. Initially her right knee and right ankle were bothering her so she went to the urgent care for x-rays which were negative. Later that night left knee started swelling and developed a blister. Her primary care provider did I and D in the office and started her on Levaquin on 08-23. she started to develop fever and chills so she contacted her primary care provider and I switched her to Bactrim. She was on Bactrim Sunday, Sunday, Sunday, and Sunday. She noted progressive swelling and erythema to her knee lower leg so she presented to the ED. in the ED x-ray was negative, venous Dopplers were ordered which were also negative. She was started on cefazolin and IV vancomycin. 09/03 patient is seen today resting in bed in no acute distress. Her leg still has edema distal to her left knee with an open non draining blister. The area has decreased sensation but is not particularly painful. She states that this swelling is improving. Initially does thinking of discharging her however since she has failed to oral antibiotic courses I recommend that she should continue with IV antibiotics today and hopefully discharge tomorrow. We are also waiting on blood cultures to result. 09/04 seen and examined. Leg is a lot better- wants to go home with PO antibiotics. Status at Discharge Functional status at discharge: independent ambulation Overall status at discharge: patient is back to baseline Time Spent with Patient Time attestation: Total time spent providing and/or coordinating discharge services: Time spent: Greater than 30 minutes Exam Narrative: General: well appearing, appears stated age. HEENT: normocephalic, atraumatic. Mucous membranes moist. EOMI, PERRLA, bilateral sclera anicteric, no conjunctival injection. Neck supple without JVD, lymphadenopathy, or bruit. Respiratory: clear to auscultation bilaterally. No rales/rhonic/wheezes. Cardiovascular: Regular rate and rhythm, normal S1-S2 upon auscultation. No murmurs, rubs, or clicks. PMI is nondisplaced, capillary
[2023-09-05] MEDS: cefuroxime axetiL 250 MG TABLET 500 MG PO (13:09)
== END 2023-09-05 14:25 | disposition home or self-care (01) ==
LOC: ANHED 21:19 → ANH3MEDSUR 09-04 00:04
PROVIDERS: Internal Medicine; Nurse Practitioner Acute Care; Admitting Provider Internal Medicine; Emergency Provider Physician Assistant; PCP Family Medicine Adolescent Medicine; Visit Provider Internal Medicine
DX: L03.116 Cellulitis of left lower limb (principal); S80.02XD Contusion of left knee, subsequent encounter; W18.30XD Fall on same level, unspecified, subsequent encounter; I10 Essential (primary) hypertension; E66.01 Morbid (severe) obesity due to excess calories; Z68.41 Body mass index [BMI] 40.0-44.9, adult; Z86.711 Personal history of pulmonary embolism; Z79.01 Long term (current) use of anticoagulants; G47.33 Obstructive sleep apnea (adult) (pediatric); E89.0 Postprocedural hypothyroidism
CPT/HCPCS: 36415; 73564; 80048; 80053; 83605; 85025; 85610; 85652; 85730; 86140; 87040; 93971; 96365; 96366; 96367; 96376; 99285; A9270; G0378; J0690; J0696; J3370

== ENCOUNTER 2023-10-15 09:19 | Emergency (ER) | payer OTHER, BC, SELFPAY ==
[2023-10-15 09:23] VITALS: BP 185/115; PULSE 114; RESP 16; TEMP 36.4; O2SAT 98
--- NOTE | 2023-10-15 09:50 | ED.EPISTAXIS ---
HPI - Epistaxis General Chief complaint: Epistaxis Stated complaint: bloody nose Time Seen by Provider: 10/15/23 09:24 Source: patient Mode of arrival: ambulatory Limitations: no limitations History of Present Illness HPI Narrative: Patient is a 63 y/o female who presents to the ED with c/o an epistaxis. Patient reports sx's began around 830 am this morning. She was unable to control bleeding at home which prompted her presentation. Notes bleeding was form L nare today. She does report more minor nosebleeds over the last week and a half, sometimes occurring from R nare. She has required a rhino rocket in the past, about 4 years ago. She is on Eliquis due to history of PE. Denies trauma to nose. Denies dizziness, lightheadedness. Denies difficulty breathing or swallowing. Related Data Home Medications Medication Instructions Recorded Confirmed cetirizine 10 mg tablet (Zyrtec) 10 mg PO DAILY PRN Allergic 08/25/21 09/03/23 Symptoms fluticasone propionate 50 1 spray intranasal DAILY PRN 08/25/21 09/03/23 mcg/actuation nasal allergy symptoms spray,suspension (Flonase Allergy Relief) olopatadine 0.7 % eye drops 1 drp EACH EYE DAILY PRN Eye 08/25/21 09/03/23 (Pataday Once Daily Relief) Irritation triamcinolone acetonide 0.1 % 1 applic topical BID PRN Itching 08/27/23 09/03/23 topical cream levothyroxine 175 mcg tablet 175 mcg PO DAILY 09/03/23 09/03/23 (Synthroid) Allergies Allergy/AdvReac Type Severity Reaction Status Date / Time Penicillins Allergy Unknown Rash Verified 10/15/23 09:26 clindamycin AdvReac Unknown Abdominal Verified 10/15/23 09:26 Pain Review of Systems Review of Systems: CONSTITUTIONAL: Denies fever, chills, or sweats. ENT: See HPI. NEUROLOGIC: Denies headache, dizziness, numbness, or weakness. All systems reviewed & are unremarkable except as noted in HPI and below PMFSH Past Medical History Medical History Erysipelas of left lower extremity HX: anticoagulation Hypertension Hyperthyroidism Morbid (severe) obesity due to excess calories Obstructive sleep apnea (adult) (pediatric) Mild (AHI 9.9) 2019 Polycythemia Post-surgical hypothyroidism Pulmonary embolism (03/2019) 04/07 and 07/09 Surgical History Surgical History History of appendectomy (1996) History of thyroidectomy (~1977) History of tonsillectomy and adenoidectomy (1971) Family History Family History Mother History of blood clots Diabetes mellitus Hypertension Breast cancer Acute myocardial infarction Cerebrovascular accident Heart disease Father Diabetes mellitus Hypertension Sibling Breast cancer Grandparent Cerebrovascular accident Grandparent Cerebrovascular accident Social History Social History Social History: The patient lives in [place] with her . She designates her , Dwain, as her surrogate decision maker and she wishes to be a full code. 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 She smoked for a couple of years as a teenager. No alcohol or drug abuse. Smoking packs per day: 1 Smoking cigarettes per day: 20.0 Years smoked: 2 Smoking pack-years: 2.00 Smoking status: Never smoker Tobacco type: cigarettes Alcohol intake: former Drinks per week: 1 Alcohol use details: Occasional Substance use: never Substance use type: does not use Do You Feel Safe in your Home?: Yes Lack of Transportation: No Lack of Food: Never True Current Housing: I Have Housing Concerned About Future Housing: No Difficulty Paying Gas/Electric Bills: No Difficulty Paying for Meds: No Currently Unemployed: No Education: Bachelor's Degree Difficulty w/ Childcare or Family Care: No Living arrangements:
[2023-10-15 12:59] VITALS: BP 163/111; PULSE 88; RESP 18
== END 2023-10-15 13:00 | disposition home or self-care (01) ==
PROVIDERS: Emergency Provider Physician Assistant; PCP Family Medicine Adolescent Medicine
DX: R04.0 Epistaxis (principal); I10 Essential (primary) hypertension; G47.30 Sleep apnea, unspecified; E05.90 Thyrotoxicosis, unspecified without thyrotoxic crisis or storm; E66.01 Morbid (severe) obesity due to excess calories; Z68.41 Body mass index [BMI] 40.0-44.9, adult; Z86.711 Personal history of pulmonary embolism; Z79.01 Long term (current) use of anticoagulants
CPT/HCPCS: 99283; A9270